=== PATIENT | female | born 1950 | race Hispanic/Latino ===

== ENCOUNTER 2023-11-20 12:16 | Inpatient (IN) | payer MEDICARE ==
[~2023-11-20 12:16] MED LIST: Iopamidol-370 76% 500 ML MDV (1 ML CHARGE) ONE
[2023-11-20] MEDS ORDERED: Cefepime 2 GM VIAL ONE (12:58)
[2023-11-20] MEDS ORDERED: Sodium Chloride 0.9% 100 ML ONE (12:58)
[2023-11-20 13:18] LABS: #Basophils 0.05 10x3/uL (0.0-0.2); %Basophils 0.5 % (0.0-1.0); %Eosinophils 0.5 % (0.0-10.0); %Lymphocytes 6.9 % (21.0-51.0); %Monocytes 7.4 % (0.0-10.0); Hematocrit 35.7 % (36.0-47.0); Hemoglobin 11.3 g/dL (12.0-16.0); Mean Corpuscular HGB CONC 31.7 g/dL (32.0-36.0); Mean Corpuscular Hemoglobin 35.9 pg (27.0-31.0); Mean Corpuscular Volume 113.3 fL (78.0-98.0); Mean Platelet Volume 9.6 fL (7.4-10.4); Platelet Count 110 10x3/uL (130-400); RBC Distribution Width 16.1 % (11.5-14.5); Red Blood Cell (RBC) Count 3.15 mill/uL (4.20-5.40)
[2023-11-20 13:28] LABS: INR-International Normal Ratio 1.3; Prothrombin Time 16.2 sec (12.0-14.7)
[2023-11-20 13:29] LABS: PTT 35.1 sec (22.9-36.1)
[2023-11-20 13:31] LABS: ALT (SGPT) 27 U/L (8-55); AST (SGOT) 51 U/L (5-34); Albumin 2.3 g/dL (3.4-4.8); Alkaline Phosphatase 249 U/L (40-110); Anion Gap 13 mmol/L (10-20); BUN (Urea Nitrogen) 13 mg/dL (9.8-20.1); Bilirubin, Total 1.7 mg/dL (0.2-1.2); CRP,High Sensitivity (Inhouse) 4.39 mg/dL (< or = 0.5); Calc. Creatinine Clearance 0 mL/min (70-130); Calcium 8.3 mg/dL (7.8-10.44); Carbon Dioxide 18 mmol/L (23-31); Chloride 114 mmol/L (98-107); Estimated GFR 77; Globulin 5.4 g/dL (2.4-3.5); Glucose 360 mg/dL (83-110); Lipase 10 U/L (8-78); Potassium 4.1 mmol/L (3.5-5.1); Protein, Total 7.7 g/dL (5.8-8.1); Sodium 141 mmol/L (136-145)
[2023-11-20 13:43] LABS: Macrocytosis SLIGHT = 6-15 cells HPF (0-5); Ovalocytes SLIGHT = 2-5 cells HPF (0-1); Platelet Adequacy Comment Platelets Decreased; Polychromasia SLIGHT = 2-3 cells HPF (0-2); Tear Drops SLIGHT = 2-5 cells HPF (0-1)
[2023-11-20] MEDS ORDERED: Ondansetron PF 4 MG/2 ML Vial IVP PRN (14:54)
[2023-11-20] MEDS ORDERED: LORazepam 2 MG/ML SYR.(CARPUJECT) ONE (15:03)
[2023-11-20 15:09] LABS: Amphetamine Not Detected (NotDetected); Barbiturates Screen Not Detected (NotDetected); Benzodiazepine Screen Not Detected (NotDetected); Cocaine Metabolite Screen Not Detected (NotDetected); Methadone Not Detected (NotDetected); Methamphetamine Not Detected (NotDetected); Opiate Screen Detected (NotDetected); Oxycodone Screen Not Detected (NotDetected); Phencyclidine (PCP) Not Detected (NotDetected); THC/Cannabinoid Screen Not Detected (NotDetected); Tricyclic Screen Not Detected (NotDetected)
[2023-11-20 15:20] LABS: Bilirubin Negative (Negative); Blood, Urine Moderate (Negative); Glucose, Urine (Dipstick) >=1000 mg/dL (Negative); Ketone, Urine Negative (Negative); Leukocyte Negative (Negative); Nitrite Positive (Negative); Protein, Urine (Dipstick) Trace mg/dL (Neg-Trace); pH, Urine 6.5 (5.0-9.0)
[2023-11-20 15:25] LABS: Clarity Clear (Clear)
[2023-11-20 15:26] LABS: Bacteria/HPF 1+ HPF (None Seen); CAUTI Indications for Culture Alt mental st,lethar; Squamous Epithelial 0-3 HPF (0-3); Transitional Epithelial 0-3 HPF (None Seen)
[2023-11-20 15:28] LABS: Urine Culture Reflex No No
[2023-11-20 15:41] LABS: Legionella Urinary Ag Negative (Negative); Strep pneumo Urine Ag NEGATIVE (NEGATIVE)
[2023-11-20] MEDS ORDERED: Glucagon 1 MG/ML KIT IM PRN (16:20)
[2023-11-20] MEDS ORDERED: Dextrose 50% Abboject 50 ML SYRINGE SLOW IVP PRN (16:20)
[2023-11-20] MEDS ORDERED: HumaLOG 300 UNITS/3 ML VIAL SC PRN (16:20)
[2023-11-20] MEDS ORDERED: Dextrose 5% in Water 1,000 ML IV PRN (16:20)
[2023-11-20] MEDS: Vancomycin (BATCH) 2 GM in Premix 1 BAG IVPB SCH (17:55)
[2023-11-20] MEDS: Lactated Ringer's 1,000 ML IV SCH (18:14)
[2023-11-20 20:07] LABS: Lactic Acid 3.5 mmol/L (0.5-2.2)
[2023-11-20 20:12] LABS: Acetaminophen Less than 10 mcg/mL (10.0-30.0); Alcohol Less than 10.0 mg/dL (Less than 10); Salicylate Less than 8.0 mg/dL (15.0-30.0)
[2023-11-20 20:20] LABS: Critical Call Chem Troponin I NUR.MGD@2020; Troponin I 1.008 ng/mL (< 0.028)
[2023-11-20] MEDS: Morphine 2 MG/ML VIAL SLOW IVP PRN (20:46)
[2023-11-20] MEDS: [UNRECOGNIZED DRUG - OTHER] TOP SCH (21:38)
[2023-11-20] MEDS: PIPERONYL BUTOXIDE TOP SCH (21:38)
[2023-11-20] MEDS: Enoxaparin 80 MG (0.8 mL) SYRINGE SC SCH (22:26)
[2023-11-21 00:46] LABS: Critical Call Chem Troponin I RESULT DECREASING; Troponin I 0.678 ng/mL (< 0.028)
[2023-11-21 01:01] LABS: Influenza A by NAA Not Detected (NotDetected); Influenza B by NAA Not Detected (NotDetected); SARS-CoV-2 NAA Rapid Test Not Detected (NotDetected)
[2023-11-21] MEDS: Cefepime 1 GM in Sodium Chloride 0.9% 100 ML IVPB SCH (03:58)
[2023-11-21 06:20] LABS: #Basophils 0.03 10x3/uL (0.0-0.2); #Eosinphils Less than 0.03 10x3/uL (0.0-0.7); %Basophils 0.2 % (0.0-1.0); %Monocytes 6.8 % (0.0-10.0); %Neutrophils 87.2 % (42.0-75.0); Hematocrit 28.7 % (36.0-47.0); Hemoglobin 9.1 g/dL (12.0-16.0); Mean Corpuscular HGB CONC 31.7 g/dL (32.0-36.0); Mean Corpuscular Hemoglobin 36.5 pg (27.0-31.0); Mean Corpuscular Volume 115.3 fL (78.0-98.0); Mean Platelet Volume 11.1 fL (7.4-10.4); Platelet Count 65 10x3/uL (130-400); RBC Distribution Width 16.4 % (11.5-14.5); Red Blood Cell (RBC) Count 2.49 mill/uL (4.20-5.40)
[2023-11-21 06:32] LABS: Lactic Acid 2.6 mmol/L (0.5-2.2)
[2023-11-21 06:34] LABS: Vancomycin, Random 17.6 ug/mL (See Comment)
[2023-11-21 06:38] LABS: ALT (SGPT) 22 U/L (8-55); AST (SGOT) 47 U/L (5-34); Albumin 1.7 g/dL (3.4-4.8); Alkaline Phosphatase 154 U/L (40-110); Anion Gap 11 mmol/L (10-20); BUN (Urea Nitrogen) 18 mg/dL (9.8-20.1); Bilirubin, Total 1.2 mg/dL (0.2-1.2); Calc. Creatinine Clearance 85 mL/min (70-130); Calcium 7.9 mg/dL (7.8-10.44); Carbon Dioxide 17 mmol/L (23-31); Chloride 118 mmol/L (98-107); Estimated GFR 84; Globulin 4.4 g/dL (2.4-3.5); Glucose 197 mg/dL (83-110); Iron 16 ug/dL (50-170); Iron Binding Capacity, Total 133 mcg/dL (265-497); Magnesium 1.8 mg/dL (1.6-2.6); Potassium 4.2 mmol/L (3.5-5.1); Protein, Total 6.1 g/dL (5.8-8.1); Sodium 142 mmol/L (136-145)
[2023-11-21] MEDS: Enoxaparin 40 MG (0.4 mL) SYRINGE SC SCH (08:38)
[2023-11-21] MEDS: Thiamine 100 MG TAB PO SCH (08:39)
[2023-11-21] MEDS ORDERED: Enoxaparin 40 MG (0.4 mL) SYRINGE SC SCH (09:00)
[2023-11-21] MEDS: Acetaminophen 325 MG TAB PO PRN (09:48)
[2023-11-21] MEDS: HumaLOG 300 UNITS/3 ML VIAL SC PRN (12:01)
[2023-11-21] MEDS ORDERED: Bisacodyl 5 MG TAB PO PRN (13:33)
[2023-11-21] MEDS: traMADol HCl 50 MG TAB PO SCH (14:03)
[2023-11-21] MEDS: Vancomycin (BATCH) 1.5 GM in Premix 1 BAG IVPB SCH (14:08)
[2023-11-21] MEDS: Polyethylene Glycol 3350 17 GM Packet PO SCH (15:56)
[2023-11-21] MEDS: Lactulose 20 GM (30 mL) UDCUP PO SCH (23:04)
[2023-11-21] MEDS: traMADol HCl 50 MG TAB PO PRN (23:18)
[2023-11-22 00:58] LABS: HBSAB Concentration Less than 8.00 mIU/mL; HBsAg Index 0.29 S/CO (0-0.99); Hep B Surf AB NONREACTIVE (NonReactive); Hep B Surf Ag NONREACTIVE S/CO (NonReactive); Hep C IgG Ab NONREACTIVE S/CO (NonReactive); Hep C Index 0.18 S/CO (0-0.79)
[2023-11-22 08:02] LABS: #Basophils Less than 0.03 10x3/uL (0.0-0.2); %Basophils 0.2 % (0.0-1.0); %Eosinophils 2.3 % (0.0-10.0); %Lymphocytes 10.2 % (21.0-51.0); %Monocytes 9.1 % (0.0-10.0); %Neutrophils 77.6 % (42.0-75.0); Hematocrit 29.7 % (36.0-47.0); Hemoglobin 9.5 g/dL (12.0-16.0); Mean Corpuscular Hemoglobin 36.3 pg (27.0-31.0); Mean Corpuscular Volume 113.4 fL (78.0-98.0); Mean Platelet Volume 10.8 fL (7.4-10.4); Platelet Count 73 10x3/uL (130-400); RBC Distribution Width 16.2 % (11.5-14.5); Red Blood Cell (RBC) Count 2.62 mill/uL (4.20-5.40)
[2023-11-22 08:12] LABS: ALT (SGPT) 25 U/L (8-55); AST (SGOT) 62 U/L (5-34); Albumin 1.7 g/dL (3.4-4.8); Alkaline Phosphatase 162 U/L (40-110); Anion Gap 12 mmol/L (10-20); BUN (Urea Nitrogen) 25 mg/dL (9.8-20.1); Bilirubin, Total 0.9 mg/dL (0.2-1.2); Calc. Creatinine Clearance 90 mL/min (70-130); Carbon Dioxide 17 mmol/L (23-31); Chloride 115 mmol/L (98-107); Estimated GFR 87; Globulin 4.7 g/dL (2.4-3.5); Glucose 148 mg/dL (83-110); Potassium 4.1 mmol/L (3.5-5.1); Protein, Total 6.4 g/dL (5.8-8.1); Sodium 140 mmol/L (136-145)
[2023-11-22 09:10] LABS: Critical Call Chem Troponin I RESULT DECREASING
[2023-11-22] MEDS ORDERED: Cefepime 2 GM in Sodium Chloride 0.9% 100 ML IVPB SCH (09:15)
[2023-11-22] MEDS: Lactulose 20 GM (30 mL) UDCUP PO SCH (09:28)
[2023-11-22] MEDS: Ketorolac Tromethamine 30 MG (1 mL) VIAL IVP SCH (09:29)
[2023-11-22] MEDS: Cefepime 2 GM in Sodium Chloride 0.9% 100 ML IVPB SCH (11:27)
[2023-11-22] MEDS ORDERED: Magnevist 469MG/ML 20 ML VIAL ONE ×2 (12:52)
[2023-11-22] MEDS: Oxacillin 2 GM in Sodium Chloride 0.9% 100 ML IVPB SCH (14:43)
[2023-11-22] MEDS: Morphine 2 MG/ML VIAL SLOW IVP SCH (15:24)
[2023-11-22 17:05] LABS: Troponin I 0.229 ng/mL (< 0.028)
[2023-11-23] MEDS: [UNRECOGNIZED DRUG - OTHER] TOP SCH (02:19)
[2023-11-23] MEDS: PIPERONYL BUTOXIDE TOP SCH (02:19)
[2023-11-23 05:08] LABS: #Basophils 0.03 10x3/uL (0.0-0.2); %Basophils 0.4 % (0.0-1.0); %Eosinophils 3.4 % (0.0-10.0); %Lymphocytes 14.6 % (21.0-51.0); %Monocytes 11.6 % (0.0-10.0); %Neutrophils 69.7 % (42.0-75.0); Hematocrit 28.7 % (36.0-47.0); Hemoglobin 9.2 g/dL (12.0-16.0); Mean Corpuscular HGB CONC 32.1 g/dL (32.0-36.0); Mean Corpuscular Hemoglobin 36.4 pg (27.0-31.0); Mean Corpuscular Volume 113.4 fL (78.0-98.0); Mean Platelet Volume 10.7 fL (7.4-10.4); Platelet Count 58 10x3/uL (130-400); RBC Distribution Width 15.6 % (11.5-14.5); Red Blood Cell (RBC) Count 2.53 mill/uL (4.20-5.40)
[2023-11-23 05:10] LABS: Anion Gap 11 mmol/L (10-20); BUN (Urea Nitrogen) 21 mg/dL (9.8-20.1); Calc. Creatinine Clearance 98 mL/min (70-130); Calcium 7.6 mg/dL (7.8-10.44); Carbon Dioxide 18 mmol/L (23-31); Chloride 116 mmol/L (98-107); Estimated GFR 92; Glucose 107 mg/dL (83-110); Potassium 3.6 mmol/L (3.5-5.1); Sodium 141 mmol/L (136-145)
[2023-11-23] MEDS: Lactulose 20 GM (30 mL) UDCUP PO SCH (21:41)
[2023-11-23] MEDS: Furosemide 40 MG (4 mL) VIAL SLOW IVP SCH (21:41)
[2023-11-23] MEDS: Rifaximin 550 MG TAB PO SCH (21:42)
[2023-11-24 03:37] LABS: #Basophils 0.03 10x3/uL (0.0-0.2); %Basophils 0.4 % (0.0-1.0); %Lymphocytes 13.4 % (21.0-51.0); %Monocytes 10.7 % (0.0-10.0); %Neutrophils 73.1 % (42.0-75.0); Hematocrit 30.9 % (36.0-47.0); Hemoglobin 10.2 g/dL (12.0-16.0); Mean Corpuscular Hemoglobin 35.8 pg (27.0-31.0); Mean Corpuscular Volume 108.4 fL (78.0-98.0); Mean Platelet Volume 10.5 fL (7.4-10.4); Platelet Count 78 10x3/uL (130-400); RBC Distribution Width 15.4 % (11.5-14.5); Red Blood Cell (RBC) Count 2.85 mill/uL (4.20-5.40)
[2023-11-24 03:51] LABS: ALT (SGPT) 23 U/L (8-55); AST (SGOT) 44 U/L (5-34); Albumin 1.6 g/dL (3.4-4.8); Alkaline Phosphatase 158 U/L (40-110); Anion Gap 14 mmol/L (10-20); BUN (Urea Nitrogen) 14 mg/dL (9.8-20.1); Bilirubin, Total 1.5 mg/dL (0.2-1.2); Calc. Creatinine Clearance 90 mL/min (70-130); Calcium 8.1 mg/dL (7.8-10.44); Carbon Dioxide 20 mmol/L (23-31); Chloride 112 mmol/L (98-107); Estimated GFR 87; Globulin 4.9 g/dL (2.4-3.5); Glucose 151 mg/dL (83-110); Potassium 3.3 mmol/L (3.5-5.1); Protein, Total 6.5 g/dL (5.8-8.1); Sodium 143 mmol/L (136-145)
[2023-11-24 03:52] LABS: CRP,High Sensitivity (Inhouse) 10.57 mg/dL (< or = 0.5)
[2023-11-24] MEDS: Folic Acid 1 MG TAB PO SCH (09:36)
[2023-11-24] MEDS: Potassium Chloride 20 MEQ TAB PO SCH (09:36)
[2023-11-24 14:47] LABS: Vitamin B12 1185 pg/mL (211-911)
[2023-11-24] MEDS: Furosemide 40 MG (4 mL) VIAL SLOW IVP SCH (16:07)
[2023-11-24] MEDS: Melatonin 3 MG TAB PO PRN (22:24)
[2023-11-25 04:16] LABS: #Basophils 0.04 10x3/uL (0.0-0.2); %Basophils 0.6 % (0.0-1.0); %Eosinophils 4.5 % (0.0-10.0); %Lymphocytes 15.9 % (21.0-51.0); %Monocytes 11.7 % (0.0-10.0); %Neutrophils 66.5 % (42.0-75.0); Hematocrit 31.2 % (36.0-47.0); Hemoglobin 10.1 g/dL (12.0-16.0); Mean Corpuscular HGB CONC 32.4 g/dL (32.0-36.0); Mean Corpuscular Hemoglobin 34.4 pg (27.0-31.0); Mean Corpuscular Volume 106.1 fL (78.0-98.0); Mean Platelet Volume 10.3 fL (7.4-10.4); Platelet Count 92 10x3/uL (130-400); RBC Distribution Width 15.5 % (11.5-14.5); Red Blood Cell (RBC) Count 2.94 mill/uL (4.20-5.40)
[2023-11-25 04:44] LABS: Anion Gap 9 mmol/L (10-20); BUN (Urea Nitrogen) 12 mg/dL (9.8-20.1); Calc. Creatinine Clearance 102 mL/min (70-130); Calcium 7.9 mg/dL (7.8-10.44); Carbon Dioxide 23 mmol/L (23-31); Chloride 111 mmol/L (98-107); Estimated GFR 92; Glucose 136 mg/dL (83-110); Magnesium 1.7 mg/dL (1.6-2.6); Potassium 3.4 mmol/L (3.5-5.1); Sodium 140 mmol/L (136-145)
[2023-11-25] MEDS: Furosemide 40 MG (4 mL) VIAL SLOW IVP SCH (10:31)
[2023-11-25] MEDS: Potassium Bicarbonate/Cit Ac 20 MEQ TAB PO SCH (10:32)
[2023-11-25] MEDS: Magnesium 2 GM/50 ML(in water) 2 GM in Premix 1 BAG IVPB SCH (10:33)
[2023-11-25] MEDS: Oxacillin 2 GM in Sodium Chloride 0.9% 100 ML IVPB SCH (23:15)
[2023-11-26 05:37] LABS: #Basophils 0.05 10x3/uL (0.0-0.2); %Basophils 0.7 % (0.0-1.0); %Eosinophils 12.1 % (0.0-10.0); %Lymphocytes 25.4 % (21.0-51.0); %Monocytes 13.4 % (0.0-10.0); %Neutrophils 47.4 % (42.0-75.0); Hematocrit 29.9 % (36.0-47.0); Hemoglobin 9.5 g/dL (12.0-16.0); Mean Corpuscular HGB CONC 31.8 g/dL (32.0-36.0); Mean Corpuscular Hemoglobin 35.2 pg (27.0-31.0); Mean Corpuscular Volume 110.7 fL (78.0-98.0); Mean Platelet Volume 10.4 fL (7.4-10.4); Platelet Count 104 10x3/uL (130-400); RBC Distribution Width 15.5 % (11.5-14.5)
[2023-11-26 06:05] LABS: Macrocytosis SLIGHT = 6-15 cells HPF (0-5); Platelet Adequacy Comment Platelets Decreased; Polychromasia SLIGHT = 2-3 cells HPF (0-2)
[2023-11-26 08:34] LABS: ALT (SGPT) 16 U/L (8-55); AST (SGOT) 34 U/L (5-34); Albumin 1.6 g/dL (3.4-4.8); Alkaline Phosphatase 142 U/L (40-110); Anion Gap 11 mmol/L (10-20); BUN (Urea Nitrogen) 12 mg/dL (9.8-20.1); Calc. Creatinine Clearance 109 mL/min (70-130); Calcium 7.9 mg/dL (7.8-10.44); Carbon Dioxide 24 mmol/L (23-31); Chloride 111 mmol/L (98-107); Estimated GFR 94; Globulin 4.5 g/dL (2.4-3.5); Glucose 109 mg/dL (83-110); Magnesium 1.9 mg/dL (1.6-2.6); Potassium 3.3 mmol/L (3.5-5.1); Protein, Total 6.1 g/dL (5.8-8.1); Sodium 143 mmol/L (136-145)
[2023-11-26] MEDS: Sodium Chloride 0.9% 100 ML ONE (09:31)
[2023-11-26] MEDS: Insulin Lispro 100 UNIT/ML 10 ML VIAL SC PRN (18:22)
[2023-11-26] MEDS: Oxacillin 2 GM in Sodium Chloride 0.9% 100 ML IVPB SCH (21:52)
[2023-11-27] MEDS: Insulin Lispro 100 UNIT/ML 10 ML VIAL SC PRN (21:43)
[2023-11-28 05:26] LABS: Anion Gap 8 mmol/L (10-20); BUN (Urea Nitrogen) 11 mg/dL (9.8-20.1); Calc. Creatinine Clearance 116 mL/min (70-130); Calcium 7.7 mg/dL (7.8-10.44); Carbon Dioxide 21 mmol/L (23-31); Chloride 112 mmol/L (98-107); Estimated GFR 95; Glucose 124 mg/dL (83-110); Potassium 3.4 mmol/L (3.5-5.1); Sodium 138 mmol/L (136-145)
[2023-11-28 05:27] LABS: CRP,High Sensitivity (Inhouse) 3.05 mg/dL (< or = 0.5)
[2023-11-28 05:31] LABS: #Basophils 0.03 10x3/uL (0.0-0.2); %Basophils 0.6 % (0.0-1.0); %Eosinophils 13.8 % (0.0-10.0); %Lymphocytes 22.7 % (21.0-51.0); %Monocytes 11.8 % (0.0-10.0); %Neutrophils 50.1 % (42.0-75.0); Hematocrit 27.8 % (36.0-47.0); Hemoglobin 9.1 g/dL (12.0-16.0); Mean Corpuscular HGB CONC 32.7 g/dL (32.0-36.0); Mean Corpuscular Volume 109.9 fL (78.0-98.0); Mean Platelet Volume 9.7 fL (7.4-10.4); Platelet Count 97 10x3/uL (130-400); RBC Distribution Width 15.4 % (11.5-14.5); Red Blood Cell (RBC) Count 2.53 mill/uL (4.20-5.40)
[2023-11-28 06:10] LABS: Macrocytosis SLIGHT = 6-15 cells HPF (0-5); Platelet Adequacy Comment Platelets Decreased; Polychromasia SLIGHT = 2-3 cells HPF (0-2)
[2023-11-28] MEDS ORDERED: Sodium Bicarbonate 2.5 MEQ/5 ML SDV ONE (11:35)
[2023-11-28] MEDS ORDERED: Lidocaine 1% PF 5 ML VIAL ONE (11:35)
[2023-11-28] MEDS ORDERED: Heparin 1,000 UNITS/ML VIAL ONE (11:35)
[2023-11-28] MEDS ORDERED: Sodium Chloride 0.9% 500 ML ONE (11:36)
[2023-11-28] MEDS ORDERED: Iopamidol 30 ML ONE (11:36)
[2023-11-29 04:44] LABS: #Basophils Less than 0.03 10x3/uL (0.0-0.2); %Basophils 0.4 % (0.0-1.0); %Lymphocytes 22.2 % (21.0-51.0); %Monocytes 9.8 % (0.0-10.0); Hematocrit 28.1 % (36.0-47.0); Mean Corpuscular Hemoglobin 34.9 pg (27.0-31.0); Mean Corpuscular Volume 108.9 fL (78.0-98.0); Mean Platelet Volume 9.6 fL (7.4-10.4); Platelet Count 104 10x3/uL (130-400); Red Blood Cell (RBC) Count 2.58 mill/uL (4.20-5.40)
[2023-11-29 04:54] LABS: Anion Gap 7 mmol/L (10-20); BUN (Urea Nitrogen) 11 mg/dL (9.8-20.1); Calc. Creatinine Clearance 107 mL/min (70-130); Calcium 7.5 mg/dL (7.8-10.44); Carbon Dioxide 20 mmol/L (23-31); Chloride 117 mmol/L (98-107); Estimated GFR 94; Glucose 113 mg/dL (83-110); Potassium 3.4 mmol/L (3.5-5.1); Sodium 141 mmol/L (136-145)
[2023-11-29] MEDS: hydrALAZINE 20 MG/ML VIAL SLOW IVP PRN (12:20)
[2023-11-29] MEDS: hydrALAZINE 20 MG/ML VIAL ONE (12:21)
[2023-11-29] MEDS: Amlodipine 5 MG TAB PO SCH (12:30)
[2023-11-30 04:32] LABS: #Basophils 0.04 10x3/uL (0.0-0.2); %Basophils 0.6 % (0.0-1.0); %Eosinophils 11.7 % (0.0-10.0); %Lymphocytes 16.5 % (21.0-51.0); %Monocytes 8.7 % (0.0-10.0); %Neutrophils 61.9 % (42.0-75.0); Hematocrit 30.9 % (36.0-47.0); Hemoglobin 9.7 g/dL (12.0-16.0); Mean Corpuscular HGB CONC 31.4 g/dL (32.0-36.0); Mean Corpuscular Hemoglobin 35.4 pg (27.0-31.0); Mean Corpuscular Volume 112.8 fL (78.0-98.0); Mean Platelet Volume 9.6 fL (7.4-10.4); Platelet Count 100 10x3/uL (130-400); RBC Distribution Width 16.9 % (11.5-14.5); Red Blood Cell (RBC) Count 2.74 mill/uL (4.20-5.40)
[2023-11-30 04:47] LABS: Anion Gap 9 mmol/L (10-20); BUN (Urea Nitrogen) 9 mg/dL (9.8-20.1); Calc. Creatinine Clearance 104 mL/min (70-130); Calcium 7.9 mg/dL (7.8-10.44); Carbon Dioxide 14 mmol/L (23-31); Chloride 121 mmol/L (98-107); Estimated GFR 93; Glucose 117 mg/dL (83-110); Potassium 3.8 mmol/L (3.5-5.1); Sodium 140 mmol/L (136-145)
[2023-11-30 05:23] LABS: Burr Cells MODERATE= 6-15 cells HPF (0-1); Macrocytosis SLIGHT = 6-15 cells HPF (0-5); Platelet Adequacy Comment Platelets Decreased; Polychromasia SLIGHT = 2-3 cells HPF (0-2)
[2023-11-30] MEDS: Amlodipine 5 MG TAB PO SCH (10:32)
[2023-11-30] MEDS: Sodium Bicarbonate Tab 325 MG TAB PO SCH (10:43)
[2023-11-30] MEDS: Lidocaine 4% Patch TD SCH (10:43)
[2023-11-30] MEDS ORDERED: Permethrin 5% Cream 60 GM TUBE TOP SCH (20:45)
[2023-11-30] MEDS: Transdermal Patch Removal TOP SCH (22:18)
[2023-11-30] MEDS: PIPERONYL BUTOXIDE TOP SCH (23:28)
[2023-11-30] MEDS: [UNRECOGNIZED DRUG - OTHER] TOP SCH (23:28)
[2023-12-01] MEDS: Lidocaine 4% Patch TD SCH (09:54)
[2023-12-01] MEDS: traMADol HCl 50 MG TAB PO PRN (09:55)
[2023-12-02 04:44] LABS: #Basophils Less than 0.03 10x3/uL (0.0-0.2); %Basophils 0.4 % (0.0-1.0); %Eosinophils 10.3 % (0.0-10.0); %Lymphocytes 21.9 % (21.0-51.0); %Monocytes 10.9 % (0.0-10.0); %Neutrophils 56.1 % (42.0-75.0); Hematocrit 29.6 % (36.0-47.0); Hemoglobin 9.3 g/dL (12.0-16.0); Mean Corpuscular HGB CONC 31.4 g/dL (32.0-36.0); Mean Corpuscular Hemoglobin 35.5 pg (27.0-31.0); Mean Platelet Volume 9.9 fL (7.4-10.4); Platelet Count 70 10x3/uL (130-400); RBC Distribution Width 16.8 % (11.5-14.5); Red Blood Cell (RBC) Count 2.62 mill/uL (4.20-5.40)
[2023-12-02 04:54] LABS: Anion Gap 8 mmol/L (10-20); BUN (Urea Nitrogen) 10 mg/dL (9.8-20.1); Calc. Creatinine Clearance 123 mL/min (70-130); Calcium 7.7 mg/dL (7.8-10.44); Carbon Dioxide 17 mmol/L (23-31); Chloride 118 mmol/L (98-107); Estimated GFR 97; Glucose 73 mg/dL (83-110); Potassium 3.6 mmol/L (3.5-5.1); Sodium 139 mmol/L (136-145)
[2023-12-02 04:55] LABS: CRP,High Sensitivity (Inhouse) 2.51 mg/dL (< or = 0.5)
[2023-12-02 11:46] VITALS: BMI 32.2
[2023-12-02] MEDS ORDERED: Ipratropium/Albuterol 3 ML NEB NEB PRN (16:54)
[2023-12-02] MEDS: HYDROcodone/Acetaminophen 5/325 mg Tablet PO PRN (17:00)
[2023-12-02] MEDS: Furosemide 20 MG (2 mL) VIAL SLOW IVP SCH (18:14)
[2023-12-02] MEDS: Ipratropium/Albuterol 3 ML NEB NEB SCH (18:41)
[2023-12-03 04:59] LABS: #Basophils 0.04 10x3/uL (0.0-0.2); %Basophils 0.9 % (0.0-1.0); %Eosinophils 13.2 % (0.0-10.0); %Lymphocytes 23.7 % (21.0-51.0); %Monocytes 11.9 % (0.0-10.0); %Neutrophils 49.8 % (42.0-75.0); Hematocrit 27.3 % (36.0-47.0); Hemoglobin 8.7 g/dL (12.0-16.0); Mean Corpuscular HGB CONC 31.9 g/dL (32.0-36.0); Mean Corpuscular Hemoglobin 36.7 pg (27.0-31.0); Mean Corpuscular Volume 115.2 fL (78.0-98.0); Mean Platelet Volume 9.9 fL (7.4-10.4); Platelet Count 88 10x3/uL (130-400); Red Blood Cell (RBC) Count 2.37 mill/uL (4.20-5.40)
[2023-12-03 05:17] LABS: Anion Gap 10 mmol/L (10-20); BUN (Urea Nitrogen) 10 mg/dL (9.8-20.1); Calc. Creatinine Clearance 114 mL/min (70-130); Calcium 7.7 mg/dL (7.8-10.44); Carbon Dioxide 21 mmol/L (23-31); Chloride 114 mmol/L (98-107); Estimated GFR 95; Glucose 121 mg/dL (83-110); Potassium 3.6 mmol/L (3.5-5.1); Sodium 141 mmol/L (136-145)
[2023-12-03] MEDS: Furosemide 20 MG TAB PO SCH (08:47)
[2023-12-03] MEDS: Permethrin 5% Cream 60 GM TUBE TOP SCH (10:54)
[2023-12-03] MEDS: Ipratropium/Albuterol 3 ML NEB NEB SCH ×2 (13:09→13:44)
[2023-12-03] MEDS: Calcium Carbonate 500 MG ChewTAB PO PRN (22:06)
[2023-12-04] MEDS ORDERED: Ipratropium/Albuterol 3 ML NEB ONE (02:53)
[2023-12-04 05:26] LABS: #Basophils 0.04 10x3/uL (0.0-0.2); %Basophils 0.9 % (0.0-1.0); %Eosinophils 8.6 % (0.0-10.0); %Lymphocytes 23.7 % (21.0-51.0); %Monocytes 13.3 % (0.0-10.0); %Neutrophils 53.1 % (42.0-75.0); Hematocrit 27.5 % (36.0-47.0); Hemoglobin 8.8 g/dL (12.0-16.0); Mean Corpuscular Hemoglobin 36.2 pg (27.0-31.0); Mean Corpuscular Volume 113.2 fL (78.0-98.0); Mean Platelet Volume 9.7 fL (7.4-10.4); Platelet Count 89 10x3/uL (130-400); RBC Distribution Width 16.5 % (11.5-14.5); Red Blood Cell (RBC) Count 2.43 mill/uL (4.20-5.40)
[2023-12-04 05:38] LABS: Anion Gap 7 mmol/L (10-20); BUN (Urea Nitrogen) 11 mg/dL (9.8-20.1); Calc. Creatinine Clearance 111 mL/min (70-130); Calcium 7.8 mg/dL (7.8-10.44); Carbon Dioxide 23 mmol/L (23-31); Chloride 112 mmol/L (98-107); Estimated GFR 94; Glucose 127 mg/dL (83-110); Magnesium 1.8 mg/dL (1.6-2.6); Potassium 3.4 mmol/L (3.5-5.1); Sodium 139 mmol/L (136-145)
[2023-12-04] MEDS: Magnesium 2 GM/50 ML(in water) 2 GM in Premix 1 BAG IVPB SCH (10:05)
[2023-12-04] MEDS: Potassium Bicarbonate/Cit Ac 20 MEQ TAB PO SCH (10:05)
[2023-12-04] MEDS: Sodium Bicarbonate Tab 325 MG TAB PO SCH (10:08)
[2023-12-05 04:59] LABS: #Basophils 0.04 10x3/uL (0.0-0.2); %Basophils 0.8 % (0.0-1.0); %Eosinophils 9.9 % (0.0-10.0); %Lymphocytes 17.9 % (21.0-51.0); %Monocytes 12.4 % (0.0-10.0); %Neutrophils 58.8 % (42.0-75.0); Hematocrit 28.3 % (36.0-47.0); Hemoglobin 9.1 g/dL (12.0-16.0); Mean Corpuscular HGB CONC 32.2 g/dL (32.0-36.0); Mean Corpuscular Hemoglobin 36.5 pg (27.0-31.0); Mean Corpuscular Volume 113.7 fL (78.0-98.0); Mean Platelet Volume 10.1 fL (7.4-10.4); Platelet Count 80 10x3/uL (130-400); RBC Distribution Width 16.9 % (11.5-14.5); Red Blood Cell (RBC) Count 2.49 mill/uL (4.20-5.40)
[2023-12-05 05:13] LABS: Anion Gap 6 mmol/L (10-20); BUN (Urea Nitrogen) 12 mg/dL (9.8-20.1); Calc. Creatinine Clearance 111 mL/min (70-130); Calcium 7.9 mg/dL (7.8-10.44); Carbon Dioxide 28 mmol/L (23-31); Chloride 112 mmol/L (98-107); Estimated GFR 94; Glucose 169 mg/dL (83-110); Potassium 3.8 mmol/L (3.5-5.1); Sodium 142 mmol/L (136-145)
[2023-12-05] MEDS ORDERED: PROPOFOL 200 MG/20 ML VIAL ONE (09:45)
[2023-12-05] MEDS: Potassium Bicarbonate/Cit Ac 20 MEQ TAB PO SCH (10:28)
[2023-12-06 04:27] LABS: Anion Gap 6 mmol/L (10-20); BUN (Urea Nitrogen) 13 mg/dL (9.8-20.1); Calc. Creatinine Clearance 104 mL/min (70-130); Calcium 7.9 mg/dL (7.8-10.44); Carbon Dioxide 27 mmol/L (23-31); Chloride 112 mmol/L (98-107); Estimated GFR 93; Glucose 130 mg/dL (83-110); Magnesium 1.9 mg/dL (1.6-2.6); Potassium 4.1 mmol/L (3.5-5.1); Sodium 141 mmol/L (136-145)
[2023-12-06 16:00] VITALS: BP 135/62; TEMP 98.5
== END 2023-12-06 18:14 | DRG 871 ==
LOC: SUATTDRO 12:16 → ERS 12:16 → EDBD 12:16 → IMCU/EMU 16:51 → 2NO 11-22 16:51
PROVIDERS: ADMIT Internal Medicine; ATTEND Internal Medicine
PROC: 3E03329 Introduction of Other Anti-infective into Peripheral Vein, Percutaneous Approach (ICD-10-PCS; 2023-11-20)
PROC: 02HV33Z Insertion of Infusion Device into Superior Vena Cava, Percutaneous Approach (ICD-10-PCS; 2023-11-28)
PROC: B5181ZA Fluoroscopy of Superior Vena Cava using Low Osmolar Contrast, Guidance (ICD-10-PCS; 2023-11-28)
PROC: B24BZZ4 Ultrasonography of Heart with Aorta, Transesophageal (ICD-10-PCS; principal; 2023-12-05)
DX: A41.01 Sepsis due to Methicillin susceptible Staphylococcus aureus (principal); G93.41 Metabolic encephalopathy; I50.33 Acute on chronic diastolic (congestive) heart failure; J18.9 Pneumonia, unspecified organism; I21.4 Non-ST elevation (NSTEMI) myocardial infarction; L03.116 Cellulitis of left lower limb; M48.54XA Collapsed vertebra, not elsewhere classified, thoracic region, initial encounter for fracture; E87.20 Acidosis, unspecified; E46 Unspecified protein-calorie malnutrition; K74.60 Unspecified cirrhosis of liver; K86.89 Other specified diseases of pancreas; E11.9 Type 2 diabetes mellitus without complications; Z79.4 Long term (current) use of insulin; D69.6 Thrombocytopenia, unspecified; Z66 Do not resuscitate; B85.0 Pediculosis due to Pediculus humanus capitis; Z79.899 Other long term (current) drug therapy; I11.0 Hypertensive heart disease with heart failure; E88.09 Other disorders of plasma-protein metabolism, not elsewhere classified; E87.6 Hypokalemia; E83.42 Hypomagnesemia; Z68.32 Body mass index [BMI] 32.0-32.9, adult
CPT/HCPCS: 36415; 36416; 36569; 51701; 70450; 71045; 71275; 72157; 72158; 74177; 76937; 77001; 80048; 80053; 80202; 80306; 80307; 81001; 82105; 82140; 82607; 83540; 83550; 83605; 83690; 83735; 83880; 84100; 84145; 84484; 85025; 85610; 85730; 86141; 86706; 86708; 86803; 87040; 87077; 87086; 87149; 87186; 87340; 87449; 87899; 93005; 93306; 93312; 93970; 94640; 96365; 96375; 97139; A9579; C1751; J0360; J0692; J1644; J1650; J1815; J1940; J2060; J2272; J2700; J2704; J3370; J3475; J3490; J7030; J7120; J7620; Q9967

== ENCOUNTER 2023-12-07 07:53 | Inpatient (IN) | payer MEDICARE ==
[2023-12-07 09:00] LABS: #Basophils 0.05 10x3/uL (0.0-0.2); %Basophils 1.1 % (0.0-1.0); %Eosinophils 5.9 % (0.0-10.0); %Monocytes 14.2 % (0.0-10.0); %Neutrophils 63.6 % (42.0-75.0); Hematocrit 28.7 % (36.0-47.0); Hemoglobin 9.2 g/dL (12.0-16.0); Mean Corpuscular HGB CONC 32.1 g/dL (32.0-36.0); Mean Corpuscular Hemoglobin 36.4 pg (27.0-31.0); Mean Corpuscular Volume 113.4 fL (78.0-98.0); Mean Platelet Volume 10.1 fL (7.4-10.4); Platelet Count 83 10x3/uL (130-400); RBC Distribution Width 16.6 % (11.5-14.5); Red Blood Cell (RBC) Count 2.53 mill/uL (4.20-5.40)
[2023-12-07] MEDS ORDERED: Nitroglycerin 2% Ointment 1 INCH/1 GM Packet ONE (09:02)
[2023-12-07] MEDS ORDERED: Furosemide 40 MG (4 mL) VIAL ONE (09:02)
[2023-12-07] MEDS ORDERED: Iopamidol-370 76% 500 ML MDV (1 ML CHARGE) ONE (09:04)
[2023-12-07] MEDS ORDERED: Ipratropium/Albuterol 3 ML NEB ONE (09:07)
[2023-12-07 09:36] LABS: ALT (SGPT) 26 U/L (8-55); AST (SGOT) 65 U/L (5-34); Albumin 1.6 g/dL (3.4-4.8); Alkaline Phosphatase 203 U/L (40-110); Anion Gap 11 mmol/L (10-20); BUN (Urea Nitrogen) 12 mg/dL (9.8-20.1); Bilirubin, Total 1.3 mg/dL (0.2-1.2); Calc. Creatinine Clearance 0 mL/min (70-130); Calcium 8.3 mg/dL (7.8-10.44); Carbon Dioxide 25 mmol/L (23-31); Chloride 108 mmol/L (98-107); Estimated GFR 95; Globulin 5.3 g/dL (2.4-3.5); Glucose 103 mg/dL (83-110); Lipase 10 U/L (8-78); Potassium 4.1 mmol/L (3.5-5.1); Protein, Total 6.9 g/dL (5.8-8.1); Sodium 140 mmol/L (136-145)
[2023-12-07 10:01] LABS: Macrocytosis SLIGHT = 6-15 cells HPF (0-5); Platelet Adequacy Comment Platelets Decreased; Polychromasia SLIGHT = 2-3 cells HPF (0-2)
[2023-12-07 10:18] LABS: Troponin I 0.025 ng/mL (< 0.028)
[2023-12-07] MEDS ORDERED: Ondansetron PF 4 MG/2 ML Vial IVP PRN (12:17)
[2023-12-07] MEDS ORDERED: Electrolyte Replacement Protocol 1 EACH FS PRN (13:07)
[2023-12-07] MEDS ORDERED: hydrALAZINE 20 MG/ML VIAL SLOW IVP PRN (13:07)
[2023-12-07] MEDS ORDERED: Electrolyte Replacement Protocol FS PRN (13:45)
[2023-12-07] MEDS ORDERED: CEFAZOLIN 2 GM VIAL ONE (14:13)
[2023-12-07] MEDS ORDERED: Furosemide 20 MG (2 mL) VIAL ONE (14:13)
[2023-12-07] MEDS ORDERED: Acetaminophen 325 MG TAB ONE (14:13)
[2023-12-07] MEDS ORDERED: Sodium Chloride 0.9% 100 ML ONE (14:14)
[2023-12-07] MEDS: Acetaminophen 325 MG TAB PO SCH (14:19)
[2023-12-07] MEDS: Furosemide 20 MG (2 mL) VIAL SLOW IVP SCH (14:20)
[2023-12-07] MEDS: CEFAZOLIN 2 GM in Sodium Chloride 0.9% 100 ML IVPB SCH (14:20)
[2023-12-07] MEDS ORDERED: HYDROcodone/Acetaminophen 5/325 mg Tablet ONE (14:27)
[2023-12-07] MEDS: HYDROcodone/Acetaminophen 5/325 mg Tablet PO PRN (14:28)
[2023-12-07 14:52] LABS: Troponin I 0.017 ng/mL (< 0.028)
[2023-12-07 19:10] LABS: Troponin I 0.018 ng/mL (< 0.028)
[2023-12-07 21:00] VITALS: BMI 32.2
[2023-12-07] MEDS: Famotidine 20 MG TAB PO SCH (22:01)
[2023-12-07] MEDS: Magnesium 2 GM/50 ML(in water) 2 GM in Premix 1 BAG IVPB SCH (22:02)
[2023-12-08 05:17] LABS: #Basophils 0.04 10x3/uL (0.0-0.2); %Eosinophils 8.3 % (0.0-10.0); %Lymphocytes 25.4 % (21.0-51.0); %Monocytes 12.8 % (0.0-10.0); %Neutrophils 52.3 % (42.0-75.0); Hematocrit 28.5 % (36.0-47.0); Hemoglobin 9.1 g/dL (12.0-16.0); Mean Corpuscular HGB CONC 31.9 g/dL (32.0-36.0); Mean Corpuscular Hemoglobin 36.1 pg (27.0-31.0); Mean Corpuscular Volume 113.1 fL (78.0-98.0); Mean Platelet Volume 10.1 fL (7.4-10.4); Platelet Count 85 10x3/uL (130-400); RBC Distribution Width 16.9 % (11.5-14.5); Red Blood Cell (RBC) Count 2.52 mill/uL (4.20-5.40)
[2023-12-08 05:32] LABS: Anion Gap 9 mmol/L (10-20); BUN (Urea Nitrogen) 12 mg/dL (9.8-20.1); Calc. Creatinine Clearance 104 mL/min (70-130); Calcium 7.9 mg/dL (7.8-10.44); Carbon Dioxide 25 mmol/L (23-31); Chloride 108 mmol/L (98-107); Estimated GFR 93; Glucose 91 mg/dL (83-110); Magnesium 2.2 mg/dL (1.6-2.6); Potassium 3.8 mmol/L (3.5-5.1); Sodium 138 mmol/L (136-145)
[2023-12-08] MEDS: Enoxaparin 40 MG (0.4 mL) SYRINGE SC SCH (10:09)
[2023-12-08] MEDS: Amlodipine 5 MG TAB PO SCH (10:09)
[2023-12-08] MEDS ORDERED: Melatonin 3 MG TAB PO PRN (19:44)
[2023-12-08] MEDS: Acetaminophen 325 MG TAB PO SCH (20:50)
[2023-12-08] MEDS: Lactulose 20 GM (30 mL) UDCUP PO SCH (20:51)
[2023-12-08] MEDS: Rifaximin 550 MG TAB PO SCH (20:52)
[2023-12-09 04:41] LABS: Anion Gap 10 mmol/L (10-20); BUN (Urea Nitrogen) 12 mg/dL (9.8-20.1); Calc. Creatinine Clearance 84 mL/min (70-130); Calcium 7.9 mg/dL (7.8-10.44); Carbon Dioxide 26 mmol/L (23-31); Chloride 108 mmol/L (98-107); Estimated GFR 90; Glucose 107 mg/dL (83-110); Potassium 3.2 mmol/L (3.5-5.1); Sodium 141 mmol/L (136-145)
[2023-12-09] MEDS: Pantoprazole DR 40 MG TAB PO SCH (09:03)
[2023-12-09] MEDS: Folic Acid 1 MG TAB PO SCH (09:04)
[2023-12-09] MEDS: Potassium Chloride 20 MEQ TAB PO SCH (09:04)
[2023-12-09 11:19] VITALS: BP 133/62; TEMP 98.3
[2023-12-09] MEDS ORDERED: Calcium Carbonate 600 MG + Vit D TAB PO SCH (17:00)
[2023-12-09] MEDS ORDERED: Cholecalciferol 1,000 UNITS (25 MCG) TAB PO SCH (21:00)
[2023-12-09] MEDS ORDERED: Multivit, Therapeutic 1 TAB PO SCH (21:00)
[2023-12-10] MEDS ORDERED: Furosemide 20 MG TAB PO SCH (07:30)
[2023-12-10] MEDS ORDERED: Spironolactone 25 MG TAB PO SCH (08:00)
== END 2023-12-09 13:55 | DRG 291 ==
LOC: ERS 07:53 → ERHOLD 11:23 → 2NO 16:15
PROVIDERS: ADMIT Internal Medicine; ATTEND Internal Medicine
DX: I11.0 Hypertensive heart disease with heart failure (principal); I50.33 Acute on chronic diastolic (congestive) heart failure; J96.01 Acute respiratory failure with hypoxia; R78.81 Bacteremia; Z66 Do not resuscitate; K74.60 Unspecified cirrhosis of liver; M54.50 Low back pain, unspecified; G89.29 Other chronic pain; E11.51 Type 2 diabetes mellitus with diabetic peripheral angiopathy without gangrene; B95.61 Methicillin susceptible Staphylococcus aureus infection as the cause of diseases classified elsewhere; M19.90 Unspecified osteoarthritis, unspecified site; Z79.899 Other long term (current) drug therapy; Z90.11 Acquired absence of right breast and nipple; Z98.890 Other specified postprocedural states; Z85.3 Personal history of malignant neoplasm of breast; Z90.49 Acquired absence of other specified parts of digestive tract; Z98.891 History of uterine scar from previous surgery; Z90.710 Acquired absence of both cervix and uterus
CPT/HCPCS: 36415; 36416; 71045; 71275; 72070; 80048; 80053; 82306; 83690; 83735; 83880; 84484; 85025; 85379; 93005; 94640; 96374; J1650; J1940; J3475; J3490; J7620; Q9967

== ENCOUNTER 2024-02-14 09:33 | Inpatient (IN) | payer MEDICARE ==
[2024-02-14] MEDS ORDERED: Iopamidol-370 76% 500 ML MDV (1 ML CHARGE) ONE (10:29)
[2024-02-14 10:40] LABS: #Basophils Less than 0.03 10x3/uL (0.0-0.2); %Basophils 0.2 % (0.0-1.0); %Eosinophils 2.5 % (0.0-10.0); %Lymphocytes 30.6 % (21.0-51.0); %Neutrophils 51.5 % (42.0-75.0); Hematocrit 28.8 % (36.0-47.0); Hemoglobin 10.2 g/dL (12.0-16.0); Mean Corpuscular HGB CONC 35.4 g/dL (32.0-36.0); Mean Corpuscular Hemoglobin 36.2 pg (27.0-31.0); Mean Corpuscular Volume 102.1 fL (78.0-98.0); Mean Platelet Volume 10.1 fL (7.4-10.4); Platelet Count 95 10x3/uL (130-400); RBC Distribution Width 16.7 % (11.5-14.5); Red Blood Cell (RBC) Count 2.82 mill/uL (4.20-5.40)
[2024-02-14 11:07] LABS: ALT (SGPT) 22 U/L (8-55); AST (SGOT) 41 U/L (5-34); Alkaline Phosphatase 166 U/L (40-110); Anion Gap 15 mmol/L (10-20); BUN (Urea Nitrogen) 15 mg/dL (9.8-20.1); Bilirubin, Total 1.4 mg/dL (0.2-1.2); Calc. Creatinine Clearance 0 mL/min (70-130); Carbon Dioxide 22 mmol/L (23-31); Chloride 107 mmol/L (98-107); Estimated GFR 94; Globulin 3.3 g/dL (2.4-3.5); Glucose 162 mg/dL (83-110); Potassium 3.5 mmol/L (3.5-5.1); Protein, Total 5.3 g/dL (5.8-8.1); Sodium 140 mmol/L (136-145)
[2024-02-14 11:44] LABS: Troponin I Less than 0.010 ng/mL (< 0.028)
[2024-02-14] MEDS ORDERED: Calcium Carbonate 500 MG ChewTAB PO PRN (12:28)
[2024-02-14] MEDS ORDERED: hydrALAZINE 20 MG/ML VIAL SLOW IVP PRN (12:28)
[2024-02-14] MEDS ORDERED: niCARdipine 25 MG in Sodium Chloride 0.9% 250 ML 250 ML IVPB PRN (12:28)
[2024-02-14] MEDS ORDERED: Labetalol HCl 100 MG/20 ML VIAL SLOW IVP PRN (12:28)
[2024-02-14] MEDS ORDERED: Glucagon 1 MG/ML KIT IM PRN (12:31)
[2024-02-14] MEDS ORDERED: Insulin Lispro 100 UNIT/ML 10 ML VIAL SC PRN (12:31)
[2024-02-14] MEDS ORDERED: Dextrose 50% Abboject 50 ML SYRINGE SLOW IVP PRN (12:31)
[2024-02-14] MEDS ORDERED: Dextrose 5% in Water 1,000 ML IV PRN (12:31)
[2024-02-14 15:18] VITALS: BMI 28.2
[2024-02-14] MEDS: NO ANTITHROMBOTICS FS SCH (15:25)
[2024-02-14] MEDS: Potassium Chloride 20 MEQ in Premix 1 BAG IVPB SCH (16:33)
[2024-02-14] MEDS: Atorvastatin Calcium 40 MG TAB PO SCH (20:48)
[2024-02-14] MEDS: Famotidine/PF 20 mg/2ml Vial SLOW IVP SCH (20:48)
[2024-02-15 13:13] LABS: #Basophils 0.03 10x3/uL (0.0-0.2); %Basophils 0.6 % (0.0-1.0); %Eosinophils 2.9 % (0.0-10.0); %Lymphocytes 29.3 % (21.0-51.0); %Monocytes 15.5 % (0.0-10.0); %Neutrophils 49.8 % (42.0-75.0); Hematocrit 32.1 % (36.0-47.0); Hemoglobin 11.1 g/dL (12.0-16.0); Mean Corpuscular HGB CONC 34.6 g/dL (32.0-36.0); Mean Corpuscular Hemoglobin 36.2 pg (27.0-31.0); Mean Corpuscular Volume 104.6 fL (78.0-98.0); Mean Platelet Volume 9.9 fL (7.4-10.4); Platelet Count 106 10x3/uL (130-400); RBC Distribution Width 17.1 % (11.5-14.5); Red Blood Cell (RBC) Count 3.07 mill/uL (4.20-5.40)
[2024-02-15 13:42] LABS: ALT (SGPT) 28 U/L (8-55); AST (SGOT) 53 U/L (5-34); Alkaline Phosphatase 186 U/L (40-110); Anion Gap 13 mmol/L (10-20); BUN (Urea Nitrogen) 15 mg/dL (9.8-20.1); Bilirubin, Total 1.1 mg/dL (0.2-1.2); Calc. Creatinine Clearance 87 mL/min (70-130); Calcium 8.1 mg/dL (7.8-10.44); Carbon Dioxide 21 mmol/L (23-31); Cardiac Risk 3.6 (Less than 4.5); Chloride 109 mmol/L (98-107); Cholesterol 120 mg/dl (< 200 Desired); Estimated GFR 93; Globulin 3.3 g/dL (2.4-3.5); Glucose 182 mg/dL (83-110); HDL Cholesterol 33 mg/dL (>60 Neg Risk); LDL Cholesterol, Calculated 66 mg/dL; Potassium 3.5 mmol/L (3.5-5.1); Protein, Total 5.3 g/dL (5.8-8.1); Sodium 139 mmol/L (136-145); Triglycerides 104 mg/dL (Less than 150)
[2024-02-15 13:44] LABS: Troponin I Less than 0.010 ng/mL (< 0.028)
[2024-02-15] MEDS: Insulin Lispro 100 UNIT/ML 10 ML VIAL SC PRN (14:33)
[2024-02-15] MEDS: Senokot S 8.6-50 MG TAB PO PRN (18:11)
[2024-02-16 09:48] LABS: Anion Gap 9 mmol/L (10-20); BUN (Urea Nitrogen) 10 mg/dL (9.8-20.1); Calc. Creatinine Clearance 105 mL/min (70-130); Calcium 7.8 mg/dL (7.8-10.44); Carbon Dioxide 23 mmol/L (23-31); Chloride 113 mmol/L (98-107); Estimated GFR 98; Glucose 118 mg/dL (83-110); Potassium 3.8 mmol/L (3.5-5.1); Sodium 141 mmol/L (136-145)
[2024-02-16] MEDS: Aspirin 325 mg Enteric Coated Tablet PO SCH (09:54)
[2024-02-16] MEDS: Enoxaparin 40 MG (0.4 mL) SYRINGE SC SCH (09:54)
[2024-02-16 10:05] LABS: Hematocrit 27.6 % (36.0-47.0); Hemoglobin 9.1 g/dL (12.0-16.0); Mean Corpuscular Hemoglobin 36.4 pg (27.0-31.0); Mean Corpuscular Volume 110.4 fL (78.0-98.0); Platelet Count 105 10x3/uL (130-400); RBC Distribution Width 16.7 % (11.5-14.5)
[2024-02-16] MEDS ORDERED: HYDROcodone/Acetaminophen 5/325 mg Tablet PO PRN (10:05)
[2024-02-16] MEDS ORDERED: Morphine 4 MG/ML VIAL SLOW IVP PRN ×2 (10:05→14:41)
[2024-02-16] MEDS: Morphine 4 MG/ML VIAL SLOW IVP SCH (10:15)
[2024-02-16] MEDS: tiZANidine HCl 4 MG TAB PO SCH (10:15)
[2024-02-16 10:56] LABS: Anisocytosis SLIGHT = 6-15 cells HPF (0-5); Band 2 % (5-11); Eosinophils 10 % (0-10); Large Platelets 1.9 % (0-5); Lymphocytes 15 % (21-51); Macrocytosis SLIGHT = 6-15 cells HPF (0-5); Monocytes 11 % (0-10); Neutrophil 62 % (42-75); Platelet Adequacy Comment Platelets Decreased; Polychromasia SLIGHT = 2-3 cells HPF (0-2)
[2024-02-16] MEDS: Lactated Ringer's 1,000 ML IV SCH ×2 (13:17→15:38)
[2024-02-16] MEDS: Ondansetron PF 4 MG/2 ML Vial IVP PRN (19:40)
[2024-02-16] MEDS: Promethazine HCl 12.5 MG in Sodium Chloride 0.9% 50 ML IVPB PRN (21:13)
[2024-02-17 06:24] LABS: Phosphorus 3.4 mg/dL (2.3-4.7)
[2024-02-17 06:29] LABS: Anion Gap 8 mmol/L (10-20); BUN (Urea Nitrogen) 15 mg/dL (9.8-20.1); Calc. Creatinine Clearance 102 mL/min (70-130); Calcium 7.9 mg/dL (7.8-10.44); Carbon Dioxide 24 mmol/L (23-31); Chloride 114 mmol/L (98-107); Estimated GFR 95; Glucose 134 mg/dL (83-110); Magnesium 1.6 mg/dL (1.6-2.6); Potassium 4.5 mmol/L (3.5-5.1); Sodium 141 mmol/L (136-145)
[2024-02-17 06:43] LABS: #Basophils Less than 0.03 10x3/uL (0.0-0.2); %Basophils 0.4 % (0.0-1.0); %Eosinophils 4.3 % (0.0-10.0); %Lymphocytes 33.5 % (21.0-51.0); %Monocytes 17.2 % (0.0-10.0); %Neutrophils 43.7 % (42.0-75.0); Hematocrit 26.7 % (36.0-47.0); Hemoglobin 8.6 g/dL (12.0-16.0); Mean Corpuscular HGB CONC 32.2 g/dL (32.0-36.0); Mean Corpuscular Hemoglobin 35.8 pg (27.0-31.0); Mean Corpuscular Volume 111.3 fL (78.0-98.0); Mean Platelet Volume 9.7 fL (7.4-10.4); Platelet Count 95 10x3/uL (130-400); RBC Distribution Width 16.8 % (11.5-14.5)
[2024-02-17] MEDS: Naloxone HCl 0.4 mg/ml Vial IV SCH (12:25)
[2024-02-17] MEDS: Acetaminophen 325 MG TAB PO PRN (20:26)
[2024-02-18 04:34] LABS: #Basophils Less than 0.03 10x3/uL (0.0-0.2); %Basophils 0.6 % (0.0-1.0); %Lymphocytes 39.7 % (21.0-51.0); %Monocytes 18.5 % (0.0-10.0); %Neutrophils 37.9 % (42.0-75.0); Hemoglobin 10.1 g/dL (12.0-16.0); Mean Corpuscular HGB CONC 32.6 g/dL (32.0-36.0); Mean Corpuscular Hemoglobin 35.7 pg (27.0-31.0); Mean Corpuscular Volume 109.5 fL (78.0-98.0); Mean Platelet Volume 9.5 fL (7.4-10.4); Platelet Count 100 10x3/uL (130-400); RBC Distribution Width 16.4 % (11.5-14.5); Red Blood Cell (RBC) Count 2.83 mill/uL (4.20-5.40)
[2024-02-18 04:50] LABS: Anion Gap 11 mmol/L (10-20); BUN (Urea Nitrogen) 11 mg/dL (9.8-20.1); Calc. Creatinine Clearance 107 mL/min (70-130); Calcium 8.2 mg/dL (7.8-10.44); Carbon Dioxide 22 mmol/L (23-31); Chloride 114 mmol/L (98-107); Estimated GFR 95; Glucose 79 mg/dL (83-110); Potassium 3.5 mmol/L (3.5-5.1); Sodium 143 mmol/L (136-145)
[2024-02-18] MEDS: Amlodipine 5 MG TAB PO SCH (16:38)
[2024-02-19 04:57] LABS: Anion Gap 11 mmol/L (10-20); BUN (Urea Nitrogen) 8 mg/dL (9.8-20.1); Calc. Creatinine Clearance 109 mL/min (70-130); Calcium 8.2 mg/dL (7.8-10.44); Carbon Dioxide 21 mmol/L (23-31); Chloride 113 mmol/L (98-107); Estimated GFR 96; Glucose 105 mg/dL (83-110); Potassium 4.2 mmol/L (3.5-5.1); Sodium 141 mmol/L (136-145)
[2024-02-19 05:43] LABS: #Basophils Less than 0.03 10x3/uL (0.0-0.2); %Basophils 0.2 % (0.0-1.0); %Eosinophils 1.9 % (0.0-10.0); %Lymphocytes 33.3 % (21.0-51.0); %Monocytes 19.6 % (0.0-10.0); %Neutrophils 44.5 % (42.0-75.0); Hematocrit 31.6 % (36.0-47.0); Hemoglobin 10.4 g/dL (12.0-16.0); Mean Corpuscular HGB CONC 32.9 g/dL (32.0-36.0); Mean Corpuscular Hemoglobin 35.9 pg (27.0-31.0); Mean Platelet Volume 9.9 fL (7.4-10.4); Platelet Count 74 10x3/uL (130-400); RBC Distribution Width 16.3 % (11.5-14.5)
[2024-02-19] MEDS: Amlodipine 5 MG TAB PO SCH (08:31)
[2024-02-19] MEDS: Cephalexin 250 MG CAP PO SCH (11:30)
[2024-02-20 04:43] LABS: Hematocrit 30.9 % (36.0-47.0); Mean Corpuscular HGB CONC 32.4 g/dL (32.0-36.0); Mean Corpuscular Hemoglobin 35.7 pg (27.0-31.0); Mean Corpuscular Volume 110.4 fL (78.0-98.0); Mean Platelet Volume 9.7 fL (7.4-10.4); Platelet Count 100 10x3/uL (130-400); RBC Distribution Width 15.9 % (11.5-14.5)
[2024-02-20 05:02] LABS: Anion Gap 9 mmol/L (10-20); BUN (Urea Nitrogen) 9 mg/dL (9.8-20.1); Calc. Creatinine Clearance 101 mL/min (70-130); Calcium 8.4 mg/dL (7.8-10.44); Carbon Dioxide 23 mmol/L (23-31); Chloride 114 mmol/L (98-107); Estimated GFR 96; Glucose 110 mg/dL (83-110); Potassium 4.1 mmol/L (3.5-5.1); Sodium 142 mmol/L (136-145)
[2024-02-20 05:08] LABS: Eosinophils 3 % (0-10); Lymphocytes 16 % (21-51); Macrocytosis SLIGHT = 6-15 cells HPF (0-5); Monocytes 20 % (0-10); Neutrophil 60 % (42-75); Platelet Adequacy Comment Platelets Decreased; Polychromasia SLIGHT = 2-3 cells HPF (0-2); Smudge Cells 16.8 %
[2024-02-20] MEDS: Aspirin 325 mg Enteric Coated Tablet PO SCH (09:12)
[2024-02-20 16:57] VITALS: BP 145/63; TEMP 96.9
== END 2024-02-20 16:37 | DRG 61 ==
LOC: ERS 09:33 → ERHOLD 12:28 → CCU 14:53 → 2SE 02-15 18:47
PROVIDERS: ADMIT Internal Medicine; ATTEND Internal Medicine
DX: I63.9 Cerebral infarction, unspecified (principal); I61.9 Nontraumatic intracerebral hemorrhage, unspecified; I50.32 Chronic diastolic (congestive) heart failure; L03.116 Cellulitis of left lower limb; Z66 Do not resuscitate; F03.90 Unspecified dementia, unspecified severity, without behavioral disturbance, psychotic disturbance, mood disturbance, and anxiety; G89.29 Other chronic pain; M54.9 Dorsalgia, unspecified; K74.60 Unspecified cirrhosis of liver; E11.51 Type 2 diabetes mellitus with diabetic peripheral angiopathy without gangrene; R00.1 Bradycardia, unspecified; T68.XXXA Hypothermia, initial encounter; T45.615A Adverse effect of thrombolytic drugs, initial encounter; R47.1 Dysarthria and anarthria; R29.810 Facial weakness; D69.6 Thrombocytopenia, unspecified; R29.704 NIHSS score 4; R47.01 Aphasia; D64.9 Anemia, unspecified; L89.151 Pressure ulcer of sacral region, stage 1; H11.31 Conjunctival hemorrhage, right eye; I11.0 Hypertensive heart disease with heart failure; Z79.899 Other long term (current) drug therapy; Z79.84 Long term (current) use of oral hypoglycemic drugs; Z79.891 Long term (current) use of opiate analgesic; Z85.3 Personal history of malignant neoplasm of breast
CPT/HCPCS: 36415; 36416; 70450; 70496; 70498; 70551; 80048; 80053; 80061; 82140; 83036; 83735; 84100; 84443; 84484; 85025; 93005; 93010; 93306; J1650; J1815; J2272; J2405; J2550; J3480; J3490; J7120; Q9967

== ENCOUNTER 2024-03-18 14:12 | Inpatient (IN) | payer MEDICARE, MEDICAID ==
[2024-03-18 14:53] LABS: #Basophils 0.04 10x3/uL (0.0-0.2); %Basophils 0.6 % (0.0-1.0); %Eosinophils 1.7 % (0.0-10.0); %Lymphocytes 20.9 % (21.0-51.0); %Monocytes 14.3 % (0.0-10.0); %Neutrophils 62.2 % (42.0-75.0); Hemoglobin 11.8 g/dL (12.0-16.0); Mean Corpuscular HGB CONC 31.9 g/dL (32.0-36.0); Mean Corpuscular Hemoglobin 34.9 pg (27.0-31.0); Mean Corpuscular Volume 109.5 fL (78.0-98.0); Mean Platelet Volume 9.3 fL (7.4-10.4); Platelet Count 148 10x3/uL (130-400); RBC Distribution Width 16.3 % (11.5-14.5); Red Blood Cell (RBC) Count 3.38 mill/uL (4.20-5.40)
[2024-03-18] MEDS ORDERED: cefTRIAXone (ROCEPHIN) 1 GM VIAL ONE (15:03)
[2024-03-18] MEDS ORDERED: Sodium Chloride 0.9% 100 ML ONE ×2 (15:03→16:22)
[2024-03-18 15:09] LABS: Lipase 32 U/L (8-78); Magnesium 1.5 mg/dL (1.6-2.6)
[2024-03-18 15:10] LABS: Acetaminophen Less than 10 mcg/mL (Less than 10); Alcohol Less than 10.0 mg/dL (Less than 10); Salicylate Less than 8.0 mg/dL (Less than 8.0)
[2024-03-18 15:12] LABS: ALT (SGPT) 60 U/L (8-55); AST (SGOT) 129 U/L (5-34); Albumin 2.7 g/dL (3.4-4.8); Alkaline Phosphatase 236 U/L (40-110); Anion Gap 18 mmol/L (10-20); BUN (Urea Nitrogen) 18 mg/dL (9.8-20.1); Bilirubin, Total 1.7 mg/dL (0.2-1.2); Calc. Creatinine Clearance 0 mL/min (70-130); Calcium 9.4 mg/dL (7.8-10.44); Carbon Dioxide 20 mmol/L (23-31); Chloride 107 mmol/L (98-107); Estimated GFR 67; Globulin 4.4 g/dL (2.4-3.5); Glucose 137 mg/dL (83-110); Potassium 3.7 mmol/L (3.5-5.1); Protein, Total 7.1 g/dL (5.8-8.1); Sodium 141 mmol/L (136-145)
[2024-03-18 15:49] LABS: Bacteria/HPF None Seen HPF (None Seen); Bilirubin Negative (Negative); Blood, Urine Negative (Negative); CAUTI Indications for Culture Alt mental st,lethar; Clarity Clear (Clear); Glucose, Urine (Dipstick) Normal (Negative); Ketone, Urine Negative (Negative); Leukocyte Negative Leu/uL (Negative); Nitrite Negative (Negative); Protein, Urine (Dipstick) Negative (Neg-Trace); RBC/HPF 0-3 HPF (0-3); Specific Gravity, Urine 1.006 (1.002-1.036); Squamous Epithelial None Seen HPF (0-3); Urobilinogen Normal mg/dL (Less than 2); pH, Urine 6.5 (5.0-9.0)
[2024-03-18 15:51] LABS: Urine Culture Reflex No No
[2024-03-18 15:55] LABS: Amphetamine Not Detected (NotDetected); Barbiturates Screen Not Detected (NotDetected); Benzodiazepine Screen Not Detected (NotDetected); Cocaine Metabolite Screen Not Detected (NotDetected); Methadone Not Detected (NotDetected); Methamphetamine Not Detected (NotDetected); Opiate Screen Not Detected (NotDetected); Oxycodone Screen Not Detected (NotDetected); Phencyclidine (PCP) Not Detected (NotDetected); THC/Cannabinoid Screen Not Detected (NotDetected); Tricyclic Screen Not Detected (NotDetected)
[2024-03-18] MEDS ORDERED: Piperacillin/Tazobactam 4.5 GM VIAL ONE (16:21)
[2024-03-18] MEDS ORDERED: Vancomycin 1 GM/200 ML (FROZEN) BAG ONE (16:22)
[2024-03-18] MEDS ORDERED: Ondansetron PF 4 MG/2 ML Vial IVP PRN (16:44)
[2024-03-18] MEDS ORDERED: Acetaminophen 650 MG Suppository PR PRN (16:44)
[2024-03-18] MEDS ORDERED: Lactulose 10 GM/15 ML Oral Solution PR PRN (16:57)
[2024-03-18] MEDS ORDERED: Glucagon 1 MG/ML KIT IM PRN (17:16)
[2024-03-18] MEDS ORDERED: Insulin Lispro 100 UNIT/ML 10 ML VIAL SC PRN (17:16)
[2024-03-18] MEDS ORDERED: Dextrose 5% in Water 1,000 ML IV PRN (17:16)
[2024-03-18] MEDS ORDERED: Dextrose 50% Abboject 50 ML SYRINGE SLOW IVP PRN (17:16)
[2024-03-18] MEDS ORDERED: hydrALAZINE 20 MG/ML VIAL SLOW IVP PRN (17:49)
[2024-03-18 18:20] LABS: Lactic Acid 5.09 mmol/L (0.5-2.2)
[2024-03-18 18:32] VITALS: BMI 25.2
[2024-03-18] MEDS: Sodium Chloride 0.9% 1,000 ML IV SCH (18:34)
[2024-03-18] MEDS: Vancomycin (BATCH) 1.75 GM in Premix 1 BAG IVPB SCH (18:34)
[2024-03-18] MEDS: Lactulose 10 GM/15 ML Oral Solution PR SCH (18:34)
[2024-03-18] MEDS ORDERED: Vancomycin 1 GM in Premix 1 BAG IVPB SCH (21:00)
[2024-03-18] MEDS: Famotidine/PF 20 mg/2ml Vial SLOW IVP SCH (22:40)
[2024-03-18] MEDS: Cefepime 1 GM in Sodium Chloride 0.9% 100 ML IVPB SCH (22:40)
[2024-03-18] MEDS: Haloperidol Lactate 5 MG/ML VIAL SLOW IVP SCH (22:41)
[2024-03-19 06:29] LABS: #Basophils 0.05 10x3/uL (0.0-0.2); %Eosinophils 3.1 % (0.0-10.0); %Lymphocytes 25.9 % (21.0-51.0); %Monocytes 17.7 % (0.0-10.0); %Neutrophils 51.9 % (42.0-75.0); Hematocrit 34.5 % (36.0-47.0); Hemoglobin 10.6 g/dL (12.0-16.0); Mean Corpuscular HGB CONC 30.7 g/dL (32.0-36.0); Mean Corpuscular Hemoglobin 34.8 pg (27.0-31.0); Mean Corpuscular Volume 113.1 fL (78.0-98.0); Mean Platelet Volume 9.7 fL (7.4-10.4); Platelet Count 109 10x3/uL (130-400); RBC Distribution Width 16.5 % (11.5-14.5); Red Blood Cell (RBC) Count 3.05 mill/uL (4.20-5.40)
[2024-03-19 06:43] LABS: Lactic Acid 2.28 mmol/L (0.5-2.2)
[2024-03-19 06:56] LABS: Burr Cells MODERATE= 6-15 cells HPF (0-1); Macrocytosis SLIGHT = 6-15 cells HPF (0-5); Platelet Adequacy Comment Platelets Decreased; Poikilocytosis SLIGHT = 6-15 cells HPF (0-5); Polychromasia SLIGHT = 2-3 cells HPF (0-2)
[2024-03-19 07:07] LABS: Vancomycin, Random 19.1 ug/mL (See Comment)
[2024-03-19 07:12] LABS: ALT (SGPT) 46 U/L (8-55); AST (SGOT) 109 U/L (5-34); Albumin 2.2 g/dL (3.4-4.8); Alkaline Phosphatase 166 U/L (40-110); Anion Gap 16 mmol/L (10-20); BUN (Urea Nitrogen) 16 mg/dL (9.8-20.1); Bilirubin, Total 1.2 mg/dL (0.2-1.2); Calc. Creatinine Clearance 64 mL/min (70-130); Calcium 8.4 mg/dL (7.8-10.44); Carbon Dioxide 16 mmol/L (23-31); Chloride 112 mmol/L (98-107); Estimated GFR 81; Globulin 3.9 g/dL (2.4-3.5); Glucose 67 mg/dL (83-110); Potassium 3.6 mmol/L (3.5-5.1); Protein, Total 6.1 g/dL (5.8-8.1); Sodium 140 mmol/L (136-145)
[2024-03-19] MEDS: Enoxaparin 40 MG (0.4 mL) SYRINGE SC SCH (08:25)
[2024-03-19] MEDS ORDERED: Loratadine 10 MG TAB PO PRN (11:11)
[2024-03-19] MEDS: Magnesium 2 GM/50 ML(in water) 2 GM in Premix 1 BAG IVPB SCH (13:09)
[2024-03-19] MEDS ORDERED: metFORMIN 500 MG TAB PO SCH (17:00)
[2024-03-19] MEDS: Vancomycin (BATCH) 1.25 GM in Premix 1 BAG IVPB SCH (17:36)
[2024-03-19] MEDS: Atorvastatin Calcium 40 MG TAB PO SCH (20:07)
[2024-03-20 05:47] LABS: ALT (SGPT) 44 U/L (8-55); AST (SGOT) 84 U/L (5-34); Albumin 2.2 g/dL (3.4-4.8); Alkaline Phosphatase 140 U/L (40-110); Anion Gap 15 mmol/L (10-20); BUN (Urea Nitrogen) 18 mg/dL (9.8-20.1); Bilirubin, Total 1.3 mg/dL (0.2-1.2); Calc. Creatinine Clearance 67 mL/min (70-130); Calcium 8.3 mg/dL (7.8-10.44); Carbon Dioxide 18 mmol/L (23-31); Chloride 117 mmol/L (98-107); Estimated GFR 85; Globulin 3.3 g/dL (2.4-3.5); Glucose 64 mg/dL (83-110); Magnesium 2.1 mg/dL (1.6-2.6); Potassium 3.5 mmol/L (3.5-5.1); Protein, Total 5.5 g/dL (5.8-8.1); Sodium 146 mmol/L (136-145)
[2024-03-20 05:49] LABS: #Basophils 0.04 10x3/uL (0.0-0.2); %Basophils 0.8 % (0.0-1.0); %Eosinophils 4.4 % (0.0-10.0); %Lymphocytes 28.1 % (21.0-51.0); %Monocytes 15.3 % (0.0-10.0); %Neutrophils 51.2 % (42.0-75.0); Hematocrit 35.1 % (36.0-47.0); Hemoglobin 11.3 g/dL (12.0-16.0); Mean Corpuscular HGB CONC 32.2 g/dL (32.0-36.0); Mean Corpuscular Hemoglobin 35.2 pg (27.0-31.0); Mean Corpuscular Volume 109.3 fL (78.0-98.0); Mean Platelet Volume 9.7 fL (7.4-10.4); Platelet Count 122 10x3/uL (130-400); RBC Distribution Width 16.1 % (11.5-14.5); Red Blood Cell (RBC) Count 3.21 mill/uL (4.20-5.40)
[2024-03-20] MEDS: Letrozole 2.5 MG TAB PO SCH (08:09)
[2024-03-20] MEDS: Amlodipine 5 MG TAB PO SCH (08:09)
[2024-03-20] MEDS: Folic Acid 1 MG TAB PO SCH (08:09)
[2024-03-20] MEDS: Dextrose 5% in Water 1,000 ML IV SCH (10:02)
[2024-03-20] MEDS ORDERED: Lactulose 10 GM/15 ML Oral Solution PR PRN (15:28)
[2024-03-20 16:20] VITALS: BMI 25.2
[2024-03-20] MEDS: VANCOMYCIN 1.25 GM/250 ML BAG 1.25 GM in Premix 1 BAG IVPB SCH (17:22)
[2024-03-20] MEDS: Lactulose 20 GM (30 mL) UDCUP PO SCH (20:27)
[2024-03-21 06:14] LABS: #Basophils 0.06 10x3/uL (0.0-0.2); %Basophils 1.2 % (0.0-1.0); %Eosinophils 4.8 % (0.0-10.0); %Lymphocytes 26.9 % (21.0-51.0); %Neutrophils 49.7 % (42.0-75.0); Hematocrit 35.6 % (36.0-47.0); Hemoglobin 11.5 g/dL (12.0-16.0); Mean Corpuscular HGB CONC 32.3 g/dL (32.0-36.0); Mean Corpuscular Hemoglobin 34.8 pg (27.0-31.0); Mean Corpuscular Volume 107.9 fL (78.0-98.0); Mean Platelet Volume 9.5 fL (7.4-10.4); Platelet Count 121 10x3/uL (130-400); RBC Distribution Width 15.7 % (11.5-14.5)
[2024-03-21 06:18] LABS: ALT (SGPT) 51 U/L (8-55); AST (SGOT) 112 U/L (5-34); Albumin 2.1 g/dL (3.4-4.8); Alkaline Phosphatase 141 U/L (40-110); Anion Gap 12 mmol/L (10-20); BUN (Urea Nitrogen) 14 mg/dL (9.8-20.1); Bilirubin, Total 1.4 mg/dL (0.2-1.2); Calc. Creatinine Clearance 79 mL/min (70-130); Calcium 8.1 mg/dL (7.8-10.44); Carbon Dioxide 18 mmol/L (23-31); Chloride 112 mmol/L (98-107); Estimated GFR 94; Globulin 3.8 g/dL (2.4-3.5); Glucose 157 mg/dL (83-110); Potassium 3.3 mmol/L (3.5-5.1); Protein, Total 5.9 g/dL (5.8-8.1); Sodium 139 mmol/L (136-145); Vancomycin, Random 24.7 ug/mL (See Comment)
[2024-03-21 06:51] LABS: Anisocytosis SLIGHT = 6-15 cells HPF (0-5); Burr Cells SLIGHT = 2-5 cells HPF (0-1); Macrocytosis SLIGHT = 6-15 cells HPF (0-5); Platelet Adequacy Comment Platelets Decreased; Poikilocytosis SLIGHT = 6-15 cells HPF (0-5); Polychromasia SLIGHT = 2-3 cells HPF (0-2)
[2024-03-21] MEDS: Potassium Chloride 20 MEQ TAB PO SCH (11:03)
[2024-03-21] MEDS: Dextrose 5% in Water 1,000 ML IV SCH (15:10)
[2024-03-22] MEDS: Furosemide 20 MG TAB PO PRN (15:16)
[2024-03-22] MEDS: Acetaminophen 500 MG TAB PO PRN (15:16)
[2024-03-23 16:31] VITALS: BP 123/78; TEMP 97.5
== END 2024-03-23 16:25 | DRG 442 ==
LOC: ERS 14:12 → T4-A 16:34
PROVIDERS: ADMIT Internal Medicine; ATTEND Hospitalist
DX: K76.82 Hepatic encephalopathy (principal); L03.116 Cellulitis of left lower limb; K74.60 Unspecified cirrhosis of liver; I10 Essential (primary) hypertension; E11.9 Type 2 diabetes mellitus without complications; Z90.49 Acquired absence of other specified parts of digestive tract; Z90.710 Acquired absence of both cervix and uterus; Z98.890 Other specified postprocedural states; Z66 Do not resuscitate; F03.90 Unspecified dementia, unspecified severity, without behavioral disturbance, psychotic disturbance, mood disturbance, and anxiety
CPT/HCPCS: 36415; 36416; 51701; 70450; 71045; 80053; 80202; 80306; 80307; 81001; 82140; 82306; 83605; 83690; 83735; 83880; 84443; 85025; 87040; 87086; 93005; 93970; 96365; 96366; 96375; 97139; J0692; J0696; J1630; J1650; J2543; J3370; J3370-JW; J3475; J3490; J7070

== ENCOUNTER 2024-04-07 08:54 | Inpatient (IN) | payer MEDICARE, MEDICAID ==
[2024-04-07] MEDS ORDERED: Vancomycin 1 GM/200 ML (FROZEN) BAG ONE (09:42)
[2024-04-07] MEDS ORDERED: Sodium Chloride 0.9% 100 ML ONE (09:42)
[2024-04-07] MEDS ORDERED: Cefepime 2 GM VIAL ONE (09:42)
[2024-04-07 09:59] LABS: #Basophils 0.03 10x3/uL (0.0-0.2); #Eosinophils Less than 0.03 10x3/uL (0.0-0.7); %Basophils 0.4 % (0.0-1.0); %Eosinophils 0.3 % (0.0-10.0); %Lymphocytes 20.5 % (21.0-51.0); %Neutrophils 65.4 % (42.0-75.0); Hematocrit 33.3 % (36.0-47.0); Hemoglobin 10.9 g/dL (12.0-16.0); Mean Corpuscular HGB CONC 32.7 g/dL (32.0-36.0); Mean Corpuscular Hemoglobin 35.2 pg (27.0-31.0); Mean Corpuscular Volume 107.4 fL (78.0-98.0); Mean Platelet Volume 9.5 fL (7.4-10.4); Platelet Count 128 10x3/uL (130-400); RBC Distribution Width 16.3 % (11.5-14.5)
[2024-04-07 10:19] LABS: ALT (SGPT) 61 U/L (8-55); AST (SGOT) 107 U/L (5-34); Albumin 2.2 g/dL (3.4-4.8); Alkaline Phosphatase 239 U/L (40-110); Anion Gap 15 mmol/L (10-20); BUN (Urea Nitrogen) 12 mg/dL (9.8-20.1); Bilirubin, Total 1.5 mg/dL (0.2-1.2); Calc. Creatinine Clearance 0 mL/min (70-130); Carbon Dioxide 14 mmol/L (23-31); Chloride 118 mmol/L (98-107); Estimated GFR 85; Globulin 4.2 g/dL (2.4-3.5); Glucose 87 mg/dL (83-110); Lipase 17 U/L (8-78); Magnesium 1.9 mg/dL (1.6-2.6); Potassium 4.3 mmol/L (3.5-5.1); Protein, Total 6.4 g/dL (5.8-8.1); Sodium 143 mmol/L (136-145)
[2024-04-07 10:31] LABS: INR-International Normal Ratio 1.2; PTT 36.3 sec (22.9-36.1); Prothrombin Time 15.3 sec (12.0-14.7)
[2024-04-07 10:39] LABS: Troponin I 0.012 ng/mL (< 0.028)
[2024-04-07 11:16] LABS: Bacteria/HPF None Seen HPF (None Seen); Bilirubin Negative (Negative); Blood, Urine Negative (Negative); CAUTI Indications for Culture Alt mental st,lethar; Clarity Clear (Clear); Glucose, Urine (Dipstick) Normal (Negative); Ketone, Urine Trace mg/dL (Negative); Leukocyte Negative Leu/uL (Negative); Nitrite Negative (Negative); Protein, Urine (Dipstick) Negative (Neg-Trace); RBC/HPF 0-3 HPF (0-3); Specific Gravity, Urine 1.013 (1.002-1.036); Squamous Epithelial None Seen HPF (0-3); WBC/HPF 0-3 HPF (0-3)
[2024-04-07 11:30] LABS: Urine Culture Reflex No No
[2024-04-07] MEDS ORDERED: Clindamycin/D5W 900 MG in Premix 1 BAG IVPB SCH (12:15)
[2024-04-07 15:36] VITALS: BMI 29.2
[2024-04-07] MEDS: Lactulose 20 GM (30 mL) UDCUP PR SCH (15:58)
[2024-04-07] MEDS: Lactulose 10 GM/15 ML Oral Solution PR SCH (15:59)
[2024-04-07] MEDS: Lactated Ringer's 1,000 ML IV SCH (16:06)
[2024-04-07] MEDS: Meropenem 1 GM in Sodium Chloride 0.9% 100 ML IVPB SCH ×3 (16:06→23:38)
[2024-04-07] MEDS: LevoFLOXacin 750 mg/D5W 750 MG in Premix 1 BAG IVPB SCH (16:07)
[2024-04-07] MEDS: Albumin 25% 25 GM (100 mL) BOT IVPB SCH (17:27)
[2024-04-07] MEDS ORDERED: LevoFLOXacin 750 mg/D5W 750 MG in Premix 1 BAG IVPB SCH (18:00)
[2024-04-07] MEDS: Atorvastatin Calcium 40 MG TAB PO SCH (21:49)
[2024-04-07] MEDS: Rifaximin 550 MG TAB PO SCH (21:49)
[2024-04-08 04:30] LABS: #Basophils 0.03 10x3/uL (0.0-0.2); %Basophils 0.4 % (0.0-1.0); %Eosinophils 1.7 % (0.0-10.0); %Lymphocytes 18.6 % (21.0-51.0); %Monocytes 12.3 % (0.0-10.0); %Neutrophils 66.7 % (42.0-75.0); Hematocrit 28.9 % (36.0-47.0); Hemoglobin 9.5 g/dL (12.0-16.0); Mean Corpuscular HGB CONC 32.9 g/dL (32.0-36.0); Mean Corpuscular Hemoglobin 35.1 pg (27.0-31.0); Mean Corpuscular Volume 106.6 fL (78.0-98.0); Mean Platelet Volume 9.4 fL (7.4-10.4); Platelet Count 106 10x3/uL (130-400); RBC Distribution Width 15.9 % (11.5-14.5); Red Blood Cell (RBC) Count 2.71 mill/uL (4.20-5.40)
[2024-04-08 04:46] LABS: Anion Gap 13 mmol/L (10-20); BUN (Urea Nitrogen) 9 mg/dL (9.8-20.1); Calc. Creatinine Clearance 91 mL/min (70-130); Calcium 8.9 mg/dL (7.8-10.44); Carbon Dioxide 16 mmol/L (23-31); Chloride 117 mmol/L (98-107); Estimated GFR 95; Glucose 73 mg/dL (83-110); Potassium 3.9 mmol/L (3.5-5.1); Sodium 142 mmol/L (136-145)
[2024-04-08] MEDS: Enoxaparin 40 MG (0.4 mL) SYRINGE SC SCH (07:59)
[2024-04-08] MEDS: Aspirin 325 mg Enteric Coated Tablet PO SCH (08:00)
[2024-04-08] MEDS: Amlodipine 5 MG TAB PO SCH (08:00)
[2024-04-08] MEDS: Letrozole 2.5 MG TAB PO SCH (08:01)
[2024-04-08] MEDS: Pantoprazole DR 40 MG TAB PO SCH (08:01)
[2024-04-08] MEDS: Folic Acid 1 MG TAB PO SCH (08:01)
[2024-04-08 08:36] LABS: ALT (SGPT) 46 U/L (8-55); AST (SGOT) 76 U/L (5-34); Albumin 2.4 g/dL (3.4-4.8); Alkaline Phosphatase 177 U/L (40-110); Bilirubin, Direct 0.8 mg/dL (0.1-0.3); Bilirubin, Total 1.9 mg/dL (0.2-1.2); Protein, Total 5.7 g/dL (5.8-8.1)
[2024-04-08] MEDS: Magnesium 2 GM/50 ML(in water) 2 GM in Premix 1 BAG IVPB SCH (08:59)
[2024-04-08] MEDS: Sodium Bicarbonate 150 MEQ in Dextrose 5% in Water 1,000 ML IV SCH (13:32)
[2024-04-08] MEDS: Lactulose 20 GM (30 mL) UDCUP PO SCH (13:37)
[2024-04-08] MEDS ORDERED: hydrALAZINE 20 MG/ML VIAL SLOW IVP PRN (14:24)
[2024-04-08] MEDS ORDERED: LevoFLOXacin 750 mg/D5W 750 MG in Premix 1 BAG IVPB SCH ×2 (16:00→18:00)
[2024-04-09] MEDS: Acetaminophen 325 MG TAB PO PRN (04:10)
[2024-04-09 06:44] LABS: #Basophils Less than 0.03 10x3/uL (0.0-0.2); %Basophils 0.4 % (0.0-1.0); %Eosinophils 4.5 % (0.0-10.0); %Monocytes 12.7 % (0.0-10.0); Hemoglobin 8.8 g/dL (12.0-16.0); Mean Corpuscular HGB CONC 32.6 g/dL (32.0-36.0); Mean Corpuscular Hemoglobin 35.1 pg (27.0-31.0); Mean Corpuscular Volume 107.6 fL (78.0-98.0); Mean Platelet Volume 9.3 fL (7.4-10.4); Platelet Count 84 10x3/uL (130-400); RBC Distribution Width 15.8 % (11.5-14.5); Red Blood Cell (RBC) Count 2.51 mill/uL (4.20-5.40)
[2024-04-09 06:59] LABS: ALT (SGPT) 35 U/L (8-55); AST (SGOT) 65 U/L (5-34); Albumin 2.2 g/dL (3.4-4.8); Alkaline Phosphatase 150 U/L (40-110); Anion Gap 8 mmol/L (10-20); BUN (Urea Nitrogen) 9 mg/dL (9.8-20.1); Bilirubin, Total 1.5 mg/dL (0.2-1.2); Calc. Creatinine Clearance 103 mL/min (70-130); Calcium 8.3 mg/dL (7.8-10.44); Carbon Dioxide 23 mmol/L (23-31); Chloride 113 mmol/L (98-107); Estimated GFR 98; Globulin 2.4 g/dL (2.4-3.5); Glucose 129 mg/dL (83-110); Magnesium 1.8 mg/dL (1.6-2.6); Phosphorus 1.8 mg/dL (2.3-4.7); Potassium 3.1 mmol/L (3.5-5.1); Protein, Total 4.6 g/dL (5.8-8.1); Sodium 141 mmol/L (136-145)
[2024-04-09] MEDS: Magnesium 2 GM/50 ML(in water) 2 GM in Premix 1 BAG IVPB SCH (08:33)
[2024-04-09] MEDS: Lactated Ringer's 1,000 ML IV SCH (08:34)
[2024-04-09] MEDS: Aspirin 81 mg Enteric Coated Tablet PO SCH (08:34)
[2024-04-09] MEDS: Potassium Phosphate 30 MMOL in Sodium Chloride 0.9% 250 ML 250 ML IVPB SCH (09:02)
[2024-04-09 12:23] VITALS: BMI 29.2
[2024-04-09] MEDS ORDERED: Melatonin 3 MG TAB PO PRN (20:15)
[2024-04-09] MEDS ORDERED: Ondansetron ODT 4 MG TAB PO PRN (21:13)
[2024-04-09] MEDS: Ondansetron PF 4 MG/2 ML Vial IVP PRN (21:29)
[2024-04-09] MEDS: Melatonin 3 MG TAB PO SCH (21:29)
[2024-04-10 05:11] LABS: #Basophils Less than 0.03 10x3/uL (0.0-0.2); %Basophils 0.4 % (0.0-1.0); %Eosinophils 7.6 % (0.0-10.0); %Lymphocytes 32.7 % (21.0-51.0); %Monocytes 15.2 % (0.0-10.0); %Neutrophils 43.7 % (42.0-75.0); Hematocrit 29.1 % (36.0-47.0); Hemoglobin 9.4 g/dL (12.0-16.0); Mean Corpuscular HGB CONC 32.3 g/dL (32.0-36.0); Mean Corpuscular Hemoglobin 34.9 pg (27.0-31.0); Mean Corpuscular Volume 108.2 fL (78.0-98.0); Mean Platelet Volume 9.7 fL (7.4-10.4); Platelet Count 80 10x3/uL (130-400); RBC Distribution Width 15.9 % (11.5-14.5); Red Blood Cell (RBC) Count 2.69 mill/uL (4.20-5.40)
[2024-04-10 05:16] LABS: Anion Gap 10 mmol/L (10-20); BUN (Urea Nitrogen) 12 mg/dL (9.8-20.1); Calc. Creatinine Clearance 93 mL/min (70-130); Calcium 8.3 mg/dL (7.8-10.44); Carbon Dioxide 22 mmol/L (23-31); Chloride 116 mmol/L (98-107); Estimated GFR 95; Glucose 71 mg/dL (83-110); Magnesium 1.7 mg/dL (1.6-2.6); Phosphorus 3.5 mg/dL (2.3-4.7); Potassium 3.8 mmol/L (3.5-5.1); Sodium 144 mmol/L (136-145)
[2024-04-10] MEDS: Magnesium 2 GM/50 ML(in water) 2 GM in Premix 1 BAG IVPB SCH (08:43)
[2024-04-10] MEDS: Loratadine 10 MG TAB PO SCH (08:45)
[2024-04-10 15:49] VITALS: BP 129/57; TEMP 97.1
== END 2024-04-10 16:23 | disposition home or self-care (01) | DRG 441 ==
LOC: ERS 08:54 → SURG B 15:30
PROVIDERS: ADMIT Hospitalist; ATTEND Internal Medicine
PROC: 4A00X4Z Measurement of Central Nervous Electrical Activity, External Approach (ICD-10-PCS; principal; 2024-04-07)
DX: K76.82 Hepatic encephalopathy (principal); G92.8 Other toxic encephalopathy; E87.20 Acidosis, unspecified; I50.32 Chronic diastolic (congestive) heart failure; F03.918 Unspecified dementia, unspecified severity, with other behavioral disturbance; D68.9 Coagulation defect, unspecified; E83.42 Hypomagnesemia; E87.6 Hypokalemia; K74.60 Unspecified cirrhosis of liver; D53.9 Nutritional anemia, unspecified; Z66 Do not resuscitate; Z85.3 Personal history of malignant neoplasm of breast; E83.39 Other disorders of phosphorus metabolism; I11.0 Hypertensive heart disease with heart failure; E11.51 Type 2 diabetes mellitus with diabetic peripheral angiopathy without gangrene; R00.0 Tachycardia, unspecified; E11.649 Type 2 diabetes mellitus with hypoglycemia without coma; D69.6 Thrombocytopenia, unspecified; I87.2 Venous insufficiency (chronic) (peripheral); E88.09 Other disorders of plasma-protein metabolism, not elsewhere classified; Z86.73 Personal history of transient ischemic attack (TIA), and cerebral infarction without residual deficits; Z79.899 Other long term (current) drug therapy; Z79.82 Long term (current) use of aspirin; Z79.84 Long term (current) use of oral hypoglycemic drugs
CPT/HCPCS: 36415; 36416; 51701; 70450; 71045; 80048; 80053; 80076; 81001; 82140; 83605; 83690; 83735; 83880; 84100; 84443; 84484; 85025; 85610; 85730; 87040; 87086; 93005; 95705; 96361; 96365; 96375; J0692; J1650; J1956; J2185; J2405; J3370-JW; J3475; J3490; J7050; J7070; J7120; P9047

== ENCOUNTER 2024-05-02 02:31 | Inpatient (IN) | payer MEDICARE, MEDICAID ==
[2024-05-02 03:37] LABS: Base Excess -23.7 mEq/L (-2.0 to +3.0); Chloride (VBG) 131 mmol/L (98-106); Hematocrit-VBG 37 % (36.0-47.0); Hemoglobin (Hb) 12.7 g/dL (11.7-16.1); Potassium (VBG) 3.75 mmol/L (3.70-5.30)
[2024-05-02 03:39] LABS: Actual Bicarbonate (HCO3v) 6.6 mEq/L (22-28); Calcium, Ionized (venous) 1.66 mmol/L (1.16-1.32); Sodium 157 mmol/L (133-146)
[2024-05-02 03:46] LABS: Hemoglobin 11.6 g/dL (12.0-16.0); Mean Corpuscular HGB CONC 31.4 g/dL (32.0-36.0); Mean Corpuscular Hemoglobin 35.4 pg (27.0-31.0); Mean Corpuscular Volume 112.8 fL (78.0-98.0); Mean Platelet Volume 11.5 fL (7.4-10.4); Platelet Count 84 10x3/uL (130-400); RBC Distribution Width 17.5 % (11.5-14.5); Red Blood Cell (RBC) Count 3.28 mill/uL (4.20-5.40)
[2024-05-02 03:47] LABS: Acetaminophen Less than 10 mcg/mL (Less than 10); Alcohol Less than 10.0 mg/dL (Less than 10); Lipase 5 U/L (8-78); Magnesium 2.1 mg/dL (1.6-2.6); Salicylate Less than 8.0 mg/dL (Less than 8.0)
[2024-05-02 03:50] LABS: Troponin I Less than 0.010 ng/mL (< 0.028)
[2024-05-02 04:02] LABS: ALT (SGPT) 55 U/L (8-55); AST (SGOT) 83 U/L (5-34); Albumin 2.4 g/dL (3.4-4.8); Alkaline Phosphatase 184 U/L (40-110); Anion Gap 16 mmol/L (10-20); BUN (Urea Nitrogen) 27 mg/dL (9.8-20.1); Bilirubin, Total 0.9 mg/dL (0.2-1.2); CK (CPK) 44 U/L (29-168); Calc. Creatinine Clearance 0 mL/min (70-130); Calcium 11.6 mg/dL (7.8-10.44); Carbon Dioxide Less than 8 mmol/L (23-31); Chloride 136 mmol/L (98-107); Estimated GFR 27; Globulin 4.1 g/dL (2.4-3.5); Glucose 153 mg/dL (83-110); Potassium 2.7 mmol/L (3.5-5.1); Protein, Total 6.5 g/dL (5.8-8.1); Sodium 155 mmol/L (136-145)
[2024-05-02 04:47] LABS: Bacteria/HPF None Seen HPF (None Seen); Bilirubin Negative (Negative); Blood, Urine Negative (Negative); CAUTI Indications for Culture Alt mental st,lethar; Clarity Clear (Clear); Glucose, Urine (Dipstick) Normal (Negative); Ketone, Urine Negative (Negative); Leukocyte Negative Leu/uL (Negative); Nitrite Negative (Negative); Protein, Urine (Dipstick) 50 mg/dL (Neg-Trace); RBC/HPF 0-3 HPF (0-3); Specific Gravity, Urine 1.022 (1.002-1.036); Squamous Epithelial 0-3 HPF (0-3); Urobilinogen Normal mg/dL (Less than 2); WBC/HPF 0-3 HPF (0-3); pH, Urine 5.5 (5.0-9.0)
[2024-05-02 04:49] LABS: Acetaminophen Less than 10 mcg/mL (Less than 10); Alcohol Less than 10.0 mg/dL (Less than 10); Salicylate Less than 8.0 mg/dL (Less than 8.0)
[2024-05-02 04:49] LABS: Urine Culture Reflex No No
[2024-05-02 04:50] LABS: Amphetamine Not Detected (NotDetected); Barbiturates Screen Not Detected (NotDetected); Benzodiazepine Screen Not Detected (NotDetected); Cocaine Metabolite Screen Not Detected (NotDetected); Methadone Not Detected (NotDetected); Methamphetamine Not Detected (NotDetected); Opiate Screen Not Detected (NotDetected); Oxycodone Screen Not Detected (NotDetected); Phencyclidine (PCP) Not Detected (NotDetected); THC/Cannabinoid Screen Not Detected (NotDetected); Tricyclic Screen Not Detected (NotDetected)
[2024-05-02] MEDS ORDERED: Magnesium 2 GM/50 ML BAG (IN WATER) ONE (04:52)
[2024-05-02] MEDS ORDERED: Cefepime 2 GM VIAL ONE (05:01)
[2024-05-02] MEDS ORDERED: Sodium Chloride 0.9% 100 ML ONE (05:01)
[2024-05-02 05:12] LABS: Anisocytosis MODERATE=16-30 cells HPF (0-5); Band 25 % (5-11); Burr Cells SLIGHT = 2-5 cells HPF (0-1); Macrocytosis SLIGHT = 6-15 cells HPF (0-5); Metamyelocyte 12 % (0-0); Monocytes 6 % (0-10); Myelocyte 4 % (0-0); Neutrophil 54 % (42-75); Platelet Adequacy Comment Platelets Decreased; Poikilocytosis SLIGHT = 6-15 cells HPF (0-5); Polychromasia SLIGHT = 2-3 cells HPF (0-2); Smudge Cells 3.6 %
[2024-05-02 05:27] LABS: INR-International Normal Ratio 1.9; Prothrombin Time 21.8 sec (12.0-14.7)
[2024-05-02] MEDS ORDERED: Potassium Chloride 20 MEQ (100 mL) BAG ONE ×2 (05:27→07:36)
[2024-05-02 05:28] LABS: PTT 48.2 sec (22.9-36.1)
[2024-05-02 05:36] LABS: Magnesium 4.9 mg/dL (1.6-2.6)
[2024-05-02] MEDS ORDERED: Ondansetron PF 4 MG/2 ML Vial IVP PRN (05:48)
[2024-05-02] MEDS ORDERED: Dextrose 50% Abboject 50 ML SYRINGE SLOW IVP PRN (05:55)
[2024-05-02] MEDS ORDERED: Dextrose 5% in Water 1,000 ML IV PRN (05:55)
[2024-05-02] MEDS ORDERED: Glucagon 1 MG/ML KIT IM PRN (05:55)
[2024-05-02] MEDS ORDERED: Insulin Lispro 100 UNIT/ML 10 ML VIAL SC PRN ×2 (05:55)
[2024-05-02] MEDS ORDERED: Potassium Chloride 40 MEQ in Premix 1 BAG IVPB SCH ×2 (06:30→15:00)
[2024-05-02] MEDS: Vancomycin (BATCH) 2 GM in Premix 1 BAG IVPB SCH (07:00)
[2024-05-02] MEDS: Sodium Bicarbonate 150 mEq in Dextrose 5% IV SCH (07:00)
[2024-05-02 07:04] LABS: Lactic Acid 7.06 mmol/L (0.5-2.2)
[2024-05-02 07:37] LABS: Albumin 1.9 g/dL (3.4-4.8); Anion Gap 16 mmol/L (10-20); BUN (Urea Nitrogen) 27 mg/dL (9.8-20.1); BUN/Creatinine Ratio 16.98; Calc. Creatinine Clearance 0 mL/min (70-130); Calcium 10.9 mg/dL (7.8-10.44); Carbon Dioxide 8 mmol/L (23-31); Chloride 136 mmol/L (98-107); Estimated GFR 34; Glucose 170 mg/dL (83-110); Potassium 3.2 mmol/L (3.5-5.1); Sodium 157 mmol/L (136-145)
[2024-05-02 07:41] LABS: Analyzer IN Cardio ER; CO2 Tension 26.4 mmHg (35.0-45.0); Carboxyhemoglobin (COHb) 0.2 gm% (0.0-3.0); Hematocrit-ABG 31 % (36.0-47.0); Hemoglobin (Hb) 10.4 g/dL (12.0-16.0); O2 Tension (PaO2), arterial 61.1 mmHg (> 70.0); Potassium - ABG Lab 3.16 mmol/L (3.70-5.30)
[2024-05-02 07:54] LABS: Actual Bicarbonate (HCO3a) 7.6 mEq/L (22-28); pH, Arterial 7.076 (7.35-7.45)
[2024-05-02 07:55] LABS: Calcium, Ionized (arterial) 1.62 mmol/L (1.12-1.30); Puncture Site Right Radial artery
[2024-05-02 08:30] LABS: Legionella Urinary Ag Negative (Negative); Strep pneumo Urine Ag NEGATIVE (NEGATIVE)
[2024-05-02 08:35] LABS: Creatinine, Urine 103.33 mg/dL (47-110)
[2024-05-02 09:13] VITALS: BMI 26.4
[2024-05-02] MEDS: Albumin 25% 25 GM (100 mL) BOT IVPB SCH ×2 (09:21→14:54)
[2024-05-02] MEDS: Sodium Bicarbonate 150 MEQ in Dextrose 5% in Water 1,000 ML IV SCH (09:21)
[2024-05-02] MEDS: Pantoprazole 40 MG VIAL IVP SCH (09:22)
[2024-05-02] MEDS: Meropenem 1 GM in Sodium Chloride 0.9% 100 ML IVPB SCH (09:59)
[2024-05-02] MEDS: Potassium Chloride 20 MEQ in Premix 1 BAG IVPB SCH (10:01)
[2024-05-02 11:02] LABS: Albumin 1.8 g/dL (3.4-4.8); Anion Gap 12 mmol/L (10-20); BUN (Urea Nitrogen) 30 mg/dL (9.8-20.1); BUN/Creatinine Ratio 18.99; Calc. Creatinine Clearance 32 mL/min (70-130); Calcium 10.4 mg/dL (7.8-10.44); Carbon Dioxide 10 mmol/L (23-31); Chloride 136 mmol/L (98-107); Estimated GFR 34; Glucose 144 mg/dL (83-110); Phosphorus 5.5 mg/dL (2.3-4.7); Potassium 3.2 mmol/L (3.5-5.1); Sodium 155 mmol/L (136-145)
[2024-05-02] MEDS ORDERED: Vancomycin Dose by Levels Sliding Scale (Wt <71) FS SCH (11:15)
[2024-05-02] MEDS ORDERED: Electrolyte Replacement Protocol FS PRN (13:00)
[2024-05-02 13:39] LABS: Base Excess (BEa) -14.9 mEq/L (-2.0 to +3.0); CO2 Tension 35.8 mmHg (35.0-45.0); Calcium, Ionized (arterial) 1.57 mmol/L (1.12-1.30); Carboxyhemoglobin (COHb) 0.7 gm% (0.0-3.0); Hematocrit-ABG 31 % (36.0-47.0); Hemoglobin (Hb) 10.4 g/dL (12.0-16.0); Potassium - ABG Lab 3.16 mmol/L (3.70-5.30)
[2024-05-02 13:41] LABS: Actual Bicarbonate (HCO3a) 12.6 mEq/L (22-28); O2 Tension (PaO2), arterial 56.7 mmHg (> 70.0); pH, Arterial 7.165 (7.35-7.45)
[2024-05-02 13:42] LABS: Puncture Site Right Radial artery
[2024-05-02 14:34] LABS: Lactic Acid 5.02 mmol/L (0.5-2.2)
[2024-05-02 15:36] LABS: Anion Gap 11 mmol/L (10-20); BUN (Urea Nitrogen) 33 mg/dL (9.8-20.1); Calc. Creatinine Clearance 27 mL/min (70-130); Carbon Dioxide 13 mmol/L (23-31); Chloride 132 mmol/L (98-107); Estimated GFR 28; Glucose 131 mg/dL (83-110); Potassium 3.2 mmol/L (3.5-5.1); Sodium 153 mmol/L (136-145)
[2024-05-02] MEDS: Morphine 2 MG/ML VIAL SLOW IVP SCH (16:22)
[2024-05-02] MEDS ORDERED: Meropenem 500 MG in Sodium Chloride 0.9% 100 ML IVPB SCH (22:00)
[2024-05-03 06:20] VITALS: TEMP 97.6
[2024-05-03 08:00] VITALS: BP 93/57
[2024-05-03] MEDS ORDERED: FLU (Fluad Triv) TS24-25 (65UP)/MF59C/PF 45 MCG/0.5 ML Syringe IM ONE (09:00)
[2024-05-03] MEDS: Morphine 2 MG/ML VIAL SLOW IVP PRN (09:33)
[2024-05-03] MEDS: Lorazepam 2 MG/ML VIAL SLOW IVP PRN (09:36)
[2024-05-03 11:27] VITALS: BMI 26.4
== END 2024-05-03 17:19 | disposition expired | DRG 871 ==
LOC: ERS 02:31 → ERHOLD 05:51 → CCU 08:27 → T4-A 17:27
PROVIDERS: ADMIT Internal Medicine; ATTEND Internal Medicine
PROC: 0T9B70Z Drainage of Bladder with Drainage Device, Via Natural or Artificial Opening (ICD-10-PCS; principal; 2024-05-02)
PROC: 4A133R1 Monitoring of Arterial Saturation, Peripheral, Percutaneous Approach (ICD-10-PCS; 2024-05-02)
PROC: 3E03329 Introduction of Other Anti-infective into Peripheral Vein, Percutaneous Approach (ICD-10-PCS; 2024-05-02)
PROC: 30233J1 Transfusion of Nonautologous Serum Albumin into Peripheral Vein, Percutaneous Approach (ICD-10-PCS; 2024-05-02)
DX: A41.9 Sepsis, unspecified organism (principal); G93.41 Metabolic encephalopathy; J18.9 Pneumonia, unspecified organism; J96.01 Acute respiratory failure with hypoxia; J69.0 Pneumonitis due to inhalation of food and vomit; F03.918 Unspecified dementia, unspecified severity, with other behavioral disturbance; I50.32 Chronic diastolic (congestive) heart failure; E87.20 Acidosis, unspecified; N17.9 Acute kidney failure, unspecified; E87.0 Hyperosmolality and hypernatremia; Z66 Do not resuscitate; Z51.5 Encounter for palliative care; I11.0 Hypertensive heart disease with heart failure; I16.0 Hypertensive urgency; E87.6 Hypokalemia; E83.52 Hypercalcemia; R65.20 Severe sepsis without septic shock; K74.60 Unspecified cirrhosis of liver; D63.8 Anemia in other chronic diseases classified elsewhere; D69.6 Thrombocytopenia, unspecified; I44.0 Atrioventricular block, first degree; R19.7 Diarrhea, unspecified; E87.8 Other disorders of electrolyte and fluid balance, not elsewhere classified; F03.90 Unspecified dementia, unspecified severity, without behavioral disturbance, psychotic disturbance, mood disturbance, and anxiety; F32.A Depression, unspecified; R13.12 Dysphagia, oropharyngeal phase; E11.51 Type 2 diabetes mellitus with diabetic peripheral angiopathy without gangrene; Z85.3 Personal history of malignant neoplasm of breast; Z86.73 Personal history of transient ischemic attack (TIA), and cerebral infarction without residual deficits; Z90.11 Acquired absence of right breast and nipple; Z90.49 Acquired absence of other specified parts of digestive tract; Z98.891 History of uterine scar from previous surgery; Z98.890 Other specified postprocedural states
CPT/HCPCS: 36415; 36416; 36600; 70450; 71045; 80053; 80306; 80307; 81001; 82140; 82550; 82570; 82805; 83605; 83690; 83735; 83880; 84145; 84156; 84300; 84484; 84540; 85025; 85610; 85730; 87040; 87428; 87449; 87899; 93005; 96361; 96365; 96374; 96375; J0692; J2060; J2185; J2272; J2470; J3370; J3475; J3480; J7070; P9047